=== PATIENT | male | born 1975 | race Caucasian/White ===

== ENCOUNTER 2016-09-17 07:50 | Emergency (ER) | payer OTHER ==
[2016-09-17] MEDS ORDERED: KETOROLAC 30 MG/ML VIAL (J1885) As Ordered ONE (08:28)
[2016-09-17] MEDS ORDERED: ONDANSETRON 4MG/2ML VIAL (J2405) As Ordered ONE (08:28)
[2016-09-17] MEDS ORDERED: OXAZEPAM 15 MG CAP As Ordered ONE (08:29)
[2016-09-17 08:46] LABS: MEAN CORPUSCULAR HEMOGLOBIN 31.4 pg (27.0-33.0); MEAN CORPUSCULAR HGB CONC 35.8 g/dl (32.0-36.5); MEAN CORPUSCULAR VOLUME 87.5 fl (80.0-96.0); PLATELET COUNT, AUTOMATED 181 k/mm3 (150-450); WHITE BLOOD COUNT 11.4 K/mm3 (4.0-10.0)
[2016-09-17 08:54] LABS: ALBUMIN 3.7 GM/DL (3.2-5.2); ALBUMIN/GLOBULIN RATIO 1.12 (1.00-1.93); ALKALINE PHOSPHATASE 86 U/L (45-117); ALT/SGPT 100 U/L (12-78); ANION GAP 11 MEQ/L (8-16); AST/SGOT 78 U/L (15-37); BILIRUBIN,DIRECT 0.2 MG/DL (0.0-0.2); BILIRUBIN,TOTAL 0.7 MG/DL (0.2-1.0); BLOOD UREA NITROGEN 11 MG/DL (7-18); CALCIUM LEVEL 8.6 MG/DL (8.5-10.1); CARBON DIOXIDE LEVEL 27 MEQ/L (21-32); CHLORIDE LEVEL 99 MEQ/L (98-107); CREATININE FOR GFR 1.18 MG/DL (0.70-1.30); GLOMERULAR FILTRATION RATE > 60.0 (>60); GLUCOSE, FASTING 111 MG/DL (70-105); POTASSIUM SERUM 3.7 MEQ/L (3.5-5.1); SODIUM LEVEL 137 MEQ/L (136-145)
[2016-09-17 09:23] LABS: BASOPHILS 1 % (0-4)
--- NOTE | 2016-09-17 10:15 | REP ---
PA and lateral chest: There are no comparisons. There are focal densities in the right upper lobe and just above the right costophrenic angle. These could represent infiltrates or masses. Left lung is clear. Cardiac size is normal. The keith, mediastinum, and bony thorax are unremarkable. Impression: Focal densities in the right upper lobe and just above the left costophrenic angle, nonspecific in the absence of prior studies, masses versus infiltrates. Signed by Yao Song MD 09/17/2016 10:07 A
--- NOTE | 2016-09-17 10:37 | REP ---
CT of the chest without IV contrast: There is performed with the plain film PA and lateral chest performed earlier today. There are no other comparisons. There are multiple patchy subsegmental ground-glass densities in the right upper lobe, right middle lobe and right lower lobe similar to those noted on the comparison plain film study. Additionally, similar densities to a lesser degree are identified in the left upper lobe and left lower lobe. There are no pleural effusions. There is no mediastinal lymph node enlargement. There is no axillary lymph node enlargement. In the absence of IV contrast the study is insensitive for hilar lymph node enlargement. The unenhanced thoracic aorta is unremarkable. Cardiac size normal. There is no pericardial effusion. Upper abdomen: The visualized upper abdominal contents are unremarkable. There is no adrenal mass. Impression: Multifocal ground-glass densities in all lobes of both lungs, compatible with multifocal infiltrates. However, neoplasm is not entirely excluded at this time. I would recommend follow-up chest CT in approximately 1-2 months to determine if the findings are persistent or transient. Scanning could be performed earlier, depending on symptomatology. Signed by Yao Song MD 09/17/2016 10:28 A
[2016-09-17] MEDS ORDERED: cefTRIAXone SOD 1 GM VIAL (J0696) As Ordered ONE (11:42)
--- NOTE | 2016-09-17 13:01 | EDDOCDS ---
Physician Documentation [facility] Name: Steven Kelly Age: 41 yrs Sex: Male : 1975 Arrival Date: 09/17/2016 Time: 07:50 Bed 8 Private MD: Waylon Guerrero P. Disposition: 09/17/16 12:36 Discharged to Home/Self Care. Impression: Pneumonia due to other specified bacteria. - Condition is Stable. - Discharge Instructions: Pneumonia, Adult, Pneumonia, Adult, [id number]. - Prescriptions for oxazepam 30 mg Oral capsule - take 1 capsule by ORAL route as directed one tablet four times per day for 3 days then one tablet three times per day for 3 days then one tablet two times per day for 3 days then once daily for 3 days; 30 capsule. Levaquin 750 mg Oral Tablet - take 1 tablet by ORAL route once daily for 10 days; 10 tablet. - Medication Reconciliation, Local Pharmacy Hours form. - Follow up: Waylon Guerrero; When: 1 - 2 days; Reason: Recheck today's complaints. - Problem is new. - Symptoms have improved. - Notes: need recheck chest xray 1-2 weeks Historical: - Allergies: Amoxicillin (Hives); - Home Meds: 1. Tylenol Cold and Flu Severe 2-67-868-200 mg/15 mL oral liqd 15 mL (Last dose: 09/17/2016 07:00) 2. ibuprofen 200 mg Oral tab 1 tab (Last dose: 09/16/2016 23:00) - PMHx: none; - PSHx: Vasectomy; - Social history: Smoking status: Patient states was never smoker of tobacco. No barriers to communication noted, The patient speaks fluent Belgian, Speaks appropriately for age. - Family history: Not pertinent. - : The pt / caregiver states he / she is not on anticoagulants. Home medication list is obtained from the patient. - Exposure Risk Screening:: None identified. Vital Signs: 09/17 07:57 BP 108 / 57; Pulse 111; Resp 18; Pulse Ox 96% ; Weight 70.31 kg / 155.01 lbs; Height 5 hs1 ft. 7 in. (170.18 cm); Pain 0/10; 07:59 Temp 102(O); hs1 09:14 Temp 100.3(O); mlb1 12:30 BP 115 / 67; Pulse 91; Resp 18; Temp 98.3; Pulse Ox 99% on R/A; Pain 0/10; ttb 07:57 Body Mass Index 24.28 (70.31 kg, 170.18 cm) hs1 MDM: 08:13 NS 0.9% 1000 ml IV at bolus once ordered. sd1 08:13 NS 0.9% 1000 ml IV at bolus once ordered. sd1 08:13 ketorolac 30 mg IVP once ordered. sd1 08:13 Ondansetron 4 mg IVP once ordered. sd1 08:13 Oxazepam 30 mg PO once ordered. sd1 08:14 Basic Metabolic Profile Ordered. EDMS 08:14 CBC with Diff Ordered. EDMS 08:14 Lipase Ordered. EDMS 08:14 Liver Profile Ordered. EDMS 08:15 -Influenza A&B Rapid Antigen - Nose Ordered. EDMS 08:15 Chest, 2 View (pa\E\lat) Ordered. EDMS 08:48 DIFFERENTIAL NO CHARGE Ordered. EDMS 08:48 PLATELET ESTIMATE Ordered. EDMS 09:26 Basic Metabolic Profile Reviewed. sd1 09:26 CBC with Diff Reviewed. sd1 09:26 Liver Profile Reviewed. sd1 09:26 Lipase Reviewed. sd1 09:26 -Influenza A&B Rapid Antigen - Nose Reviewed. sd1 10:08 CBC with Diff Reviewed. sd1 10:08 PLATELET ESTIMATE Reviewed. sd1 10:09 CT Chest Without Contrast Ordered. EDMS 10:46 NS 0.9% 1000 ml IV at bolus once ordered. sd1 10:46 cefTRIAXone 1 grams IVPB once over 30 mins; dilute in 50mL of NS or D5W ordered. sd1 11:42 NS 0.9% 1000 ml IV at bolus once ordered. sd1 11:44 Financial registration complete. mm15 11:45 [facility] Payment Agreement was scanned into [employer] and attached to record. mm15 Administered Medications: 08:35 Drug: NS 0.9% 1000 ml [sodium chloride 0.9 % injection solution] Route: IV; Rate: mlb1 bolus; Site: left antecubital; 09:54 Follow up: IV Status: Completed infusion; IV Intake: 1000ml jc4 11:53 Follow up: IV Status: Completed infusion ttb 08:35 Drug: ketorolac 30 mg [ketorolac 30 mg/mL (1 mL) injection solution (1 mL)] Route: IVP; mlb1 Site: left antecubital; 08:35 Drug: Ondansetron 4 mg [ondansetron HCl 2 mg/mL intravenous solution (2 mL)] Route: mlb1 IVP; Site: left antecubital; 08:35 Drug: Oxazepam 30 mg [oxazepam 15 mg capsule (2 caps)] Route: PO; mlb1 11:57 Follow up: Response: Confirmed pt not driving. ttb 09:55 Drug: NS 0.9% 1000 ml [sodium chloride 0.9 % intravenous solution] Route: IV; Rate: jc4 bolus; Site: left antecubital; 11:53 Follow up: IV Status: Completed infusion ttb 11:52 Drug: NS 0.9% 1000 ml [sodium chloride 0.9 % intravenous solution] Route: IV; Rate: ttb bolus; Site: left antecubital; 12:58 Follow up: Response: No Adverse Reaction; IV Status: Completed infusion; IV Intake: ttb 1000ml 11:52 Drug: NS 0.9% 50 ml, cefTRIAXone 1 grams Route: IVPB; Infused Over: 30 mins; Site: left ttb antecubital; Delivery: Pump; 12:15 Follow up: Response: No Adverse Reaction; IV Status: Completed infusion; IV Intake: 50mlttb 12:58 Not Given (Physician Discretion; MDcanceled.): NS 0.9% 1000 ml IV at bolus once ttb Signatures: Dispatcher [employer] Beverly Rodriguez MD MD sd1 Gaby Cabello RN RN hs1 Haley Rey RN RN ttb Mariana Medel mm15 Steven Snyder RN mlb1 Cassidy Laguna RN jc4 The chart was reviewed and I authenticate all verbal orders and agree with the evaluation and treatment provided.Attachments: 11:45 [facility] Payment Agreement mm15 MTDD
--- NOTE | 2016-09-17 13:01 | EDDOCDS ---
Nurse's Notes [facility] Name: Steven Kelly Age: 41 yrs Sex: Male : 1975 Arrival Date: 09/17/2016 Time: 07:50 Bed 8 Private MD: Waylon Guerrero P. Diagnosis: Pneumonia due to other specified bacteria Presentation: 09/17 07:54 Presenting complaint: Patient states: temperature this morning 103 and was vomiting. hs1 Flu like symptoms since Friday. Adult Sepsis Screening: The patient does not have new or worsening altered mentation. Patient's respiratory rate is less than 22. Systolic blood pressure is greater than 100. Patient has a qSOFA score of 0- Negative Sepsis Screen. Suicide/Homicide risk assessment- the patient denies having any suicidal and/or homicidal ideations and does not present with any other emotional, behavioral or mental health complaints. Status: Patient is not a biomedical field service engineer or dependent. Transition of care: patient was not received from another setting of care. 07:54 Method Of Arrival: Walkin/Carried/Asstd hs1 07:57 Acuity: FEDERICO Level 4 hs1 08:18 Acuity level changed due to complexity of care. mlb1 08:18 Acuity: FEDERICO Level 3 mlb1 Triage Assessment: 07:57 General: Appears in no apparent distress, Behavior is cooperative. Pain: Denies pain. hs1 HIV screening NA for this visit Offered previously. GI: Reports nausea. Derm: Skin is pink, warm & dry. normal. Historical: - Allergies: Amoxicillin (Hives); - Home Meds: 1. Tylenol Cold and Flu Severe [id number] mg/15 mL oral liqd 15 mL (Last dose: 09/17/2016 07:00) 2. ibuprofen 200 mg Oral tab 1 tab (Last dose: 09/16/2016 23:00) - PMHx: none; - PSHx: Vasectomy; - Social history: Smoking status: Patient states was never smoker of tobacco. No barriers to communication noted, The patient speaks fluent Micronesian, Speaks appropriately for age. - Family history: Not pertinent. - : The pt / caregiver states he / she is not on anticoagulants. Home medication list is obtained from the patient. - Exposure Risk Screening:: None identified. Screenin:10 Screening information is obtained from the patient. Fall risk: No risks identified. mlb1 Assistance ADL's: requires no assistance with activities of daily living. Abuse/DV Screen: The patient / caregiver reports he/she is: not in a situation that causes fear, pain or injury. Nutritional screening: No deficits noted. Advance Directives: Currently, there is no health care proxy. home support is adequate. Assessment: 08:08 General: Appears in no apparent distress, comfortable, Behavior is cooperative. Pain: mlb1 Denies pain. Neurological: No deficits noted. Respiratory: Reports cough that is. GI: Reports nausea. Derm: Skin is healthy with good turgor, Skin is dry, Skin is flushed, Skin temperature is hot. 09:14 General: Appears in no apparent distress, comfortable, Behavior is appropriate for age, mlb1 cooperative. Pain: Denies pain. Neurological: No deficits noted. Respiratory: Airway is patent Respiratory effort is even, unlabored. 10:11 General: Appears in no apparent distress, comfortable, Behavior is appropriate for age, mlb1 cooperative. Pain: Denies pain. Neurological: No deficits noted. Respiratory: No deficits noted. 11:01 General: Appears in no apparent distress, comfortable, Behavior is appropriate for age, mlb1 cooperative. Pain: Denies pain. 11:56 General: Appears in no apparent distress, comfortable, well nourished, well groomed, ttb Behavior is appropriate for age, cooperative, pleasant, quiet. Pain: Denies pain. Neurological: Level of Consciousness is awake, alert. Cardiovascular: Heart tones S1 S2 present Chest pain is denied. Respiratory: Airway is patent Respiratory effort is even, unlabored, Respiratory pattern is regular, symmetrical, Breath sounds are clear bilaterally. Reports cough that is Denies labored breathing. GI: Denies nausea. Derm: Skin is normal. 12:30 Adult Sepsis Screening: The patient does not have new or worsening altered mentation. ttb Patient's respiratory rate is less than 22. Systolic blood pressure is greater than 100. Patient has a qSOFA score of 0- Negative Sepsis Screen. General: Appears in no apparent distress, comfortable, Behavior is appropriate for age, cooperative. 12:30 Pain: Denies pain. Respiratory: No deficits noted. Airway is patent Respiratory effort ttb is even, unlabored. Vital Signs: 07:57 BP 108 / 57; Pulse 111; Resp 18; Pulse Ox 96% ; Weight 70.31 kg; Height 5 ft. 7 in. hs1 (170.18 cm); Pain 0/10; 07:59 Temp 102(O); hs1 09:14 Temp 100.3(O); mlb1 12:30 BP 115 / 67; Pulse 91; Resp 18; Temp 98.3; Pulse Ox 99% on R/A; Pain 0/10; ttb 07:57 Body Mass Index 24.28 (70.31 kg, 170.18 cm) hs1 Vitals: 07:57 Log In Time: September 17, 2016 at 07:50. hs1 ED Course: 07:52 Patient visited by Mariana Medel. mm15 07:52 Waylon Guerrero is Private Physician. mm15 07:52 Patient moved to Waiting mm15 07:54 Stephie HillRN is Primary Nurse. hs1 07:54 Patient moved to 8 hs1 07:56 Beverly Guzman MD is Attending Physician. sd1 07:57 Triage Initiated hs1 08:02 Patient visited by Beverly Guzman MD. sd1 08:10 Patient visited by Steven Snyder, MONA. mlb1 08:26 -Influenza A&B Rapid Antigen - Nose Sent. mlb1 08:26 Basic Metabolic Profile Sent. mlb1 08:26 CBC with Diff Sent. mlb1 08:26 Lipase Sent. mlb1 08:26 Liver Profile Sent. mlb1 08:26 Inserted saline lock: 20 gauge in left antecubital area and blood collected. The mlb1 patient tolerated the procedure well. Labs drawn. (by ED staff). Sent per order to lab. 08:35 The patient / caregiver is instructed regarding the plan of care and ED course. Patient mlmichelle has correct armband on for positive identification. Bed in low position. Call light in reach. Side rails up X2. 08:48 DIFFERENTIAL NO CHARGE Sent. mlb1 09:14 Patient visited by Steven Snyder, RN. mlb1 10:11 Patient visited by Steven Snyder, RN. mlb1 10:17 Chest, 2 View (pa\E\lat) Returned. EDMS 10:59 CT Chest Without Contrast Returned. EDMS 11:02 Patient visited by Steven Snyder, RN. mlb1 11:19 Primary Nurse role handed off by Stephie Hill RN mcp 11:45 [facility] Payment Agreement was scanned into [employer] and attached to record. mm15 11:56 No procedures done that require assistance. ttb 11:57 Patient visited by Haley Rey RN. ttb 12:36 Waylon Guerrero is Referral Physician. sd1 Administered Medications: 08:35 Drug: NS 0.9% 1000 ml [sodium chloride 0.9 % injection solution] Route: IV; Rate: mlb1 bolus; Site: left antecubital; 09:54 Follow up: IV Status: Completed infusion; IV Intake: 1000ml jc4 11:53 Follow up: IV Status: Completed infusion ttb 08:35 Drug: ketorolac 30 mg [ketorolac 30 mg/mL (1 mL) injection solution (1 mL)] Route: IVP; mlb1 Site: left antecubital; 08:35 Drug: Ondansetron 4 mg [ondansetron HCl 2 mg/mL intravenous solution (2 mL)] Route: mlb1 IVP; Site: left antecubital; 08:35 Drug: Oxazepam 30 mg [oxazepam 15 mg capsule (2 caps)] Route: PO; mlb1 11:57 Follow up: Response: Confirmed pt not driving. ttb 09:55 Drug: NS 0.9% 1000 ml [sodium chloride 0.9 % intravenous solution] Route: IV; Rate: jc4 bolus; Site: left antecubital; 11:53 Follow up: IV Status: Completed infusion ttb 11:52 Drug: NS 0.9% 1000 ml [sodium chloride 0.9 % intravenous solution] Route: IV; Rate: ttb bolus; Site: left antecubital; 12:58 Follow up: Response: No Adverse Reaction; IV Status: Completed infusion; IV Intake: ttb 1000ml 11:52 Drug: NS 0.9% 50 ml, cefTRIAXone 1 grams Route: IVPB; Infused Over: 30 mins; Site: left ttb antecubital; Delivery: Pump; 12:15 Follow up: Response: No Adverse Reaction; IV Status: Completed infusion; IV Intake: 50mlttb 12:58 Not Given (Physician Discretion; MDcanceled.): NS 0.9% 1000 ml IV at bolus once ttb Intake: 09:54 IV: 1000.00ml; Total: 1000.00ml. jc4 12:15 IV: 50.00ml; Total: 1050.00ml. ttb 12:58 IV: 1000.00ml; Total: 2050.00ml. ttb Order Results: Lab Order: Basic Metabolic Profile; SPEC09/17/16 08:24 Test: GLUCOSE, FASTING; Value: 111; Range: 70-105; Abnormal: Above high normal; Units: MG/DL; Status: F Test: BLOOD UREA NITROGEN; Value: 11; Range: 7-18; Units: MG/DL; Status: F Test: CREATININE FOR GFR; Value: 1.18; Range: 0.70-1.30; Units: MG/DL; Status: F Test: GLOMERULAR FILTRATION RATE; Value: > 60.0; Range: >60; Status: F Test: SODIUM LEVEL; Value: 137; Range: 136-145; Units: MEQ/L; Status: F Test: POTASSIUM SERUM; Value: 3.7; Range: 3.5-5.1; Units: MEQ/L; Status: F Test: CHLORIDE LEVEL; Value: 99; Range: 98-107; Units: MEQ/L; Status: F Test: CARBON DIOXIDE LEVEL; Value: 27; Range: 21-32; Units: MEQ/L; Status: F Test: ANION GAP; Value: 11; Range: 8-16; Units: MEQ/L; Status: F Test: CALCIUM LEVEL; Value: 8.6; Range: 8.5-10.1; Units: MG/DL; Status: F Test Note: ; Units are mL/min/1.73 m2 Chronic Kidney Disease Staging per NKF: Stage I & II GFR >=60 Normal to Mildly Decreased Stage III GFR 30-59 Moderately Decreased Stage IV GFR 15-29 Severely Decreased Stage V GFR <15 Very Little GFR Left ESRD GFR <15 on MOTION STUDY ANALYST Lab Order: CBC with Diff; SPEC09/17/16 08:24 Test: WHITE BLOOD COUNT; Value: 11.4; Range: 4.0-10.0; Abnormal: Above high normal; Units: K/mm3; Status: F Test: RED BLOOD COUNT; Value: 5.00; Range: 4.30-6.10; Units: M/mm3; Status: F Test: HEMOGLOBIN; Value: 15.7; Range: 14.0-18.0; Units: g/dl; Status: F Test: HEMATOCRIT; Value: 43.7; Range: 42.0-52.0; Units: %; Status: F Test: MEAN CORPUSCULAR VOLUME; Value: 87.5; Range: 80.0-96.0; Units: fl; Status: F Test: MEAN CORPUSCULAR HEMOGLOBIN; Value: 31.4; Range: 27.0-33.0; Units: pg; Status: F Test: MEAN CORPUSCULAR HGB CONC; Value: 35.8; Range: 32.0-36.5; Units: g/dl; Status: F Test: RED CELL DISTRIBUTION WIDTH; Value: 12.0; Range: 11.5-14.5; Units: %; Status: F Test: PLATELET COUNT, AUTOMATED; Value: 181; Range: 150-450; Units: k/mm3; Status: F Test: NEUTROPHILS; Value: 81; Range: 35-75; Abnormal: Above high normal; Units: %; Status: F Test: LYMPHOCYTES; Value: 1; Range: 16-52; Abnormal: Below low normal; Units: %; Status: F Test: MONOCYTES; Value: 15; Range: 0-8; Abnormal: Above high normal; Units: %; Status: F Test: BASOPHILS; Value: 1; Range: 0-4; Units: %; Status: F Test: ATYPICAL LYMPH; Value: 2; Range: 0-5; Units: %; Status: F Test: RBC MORPHOLOGY; Value: NORMAL; Status: F Lab Order: Lipase; [facility] 09/17/16 08:24 Test: LIPASE; Value: 186; Range: 73-393; Units: U/L; Status: F Lab Order: Liver Profile; [facility] 09/17/16 08:24 Test: AST/SGOT; Value: 78; Range: 15-37; Abnormal: Above high normal; Units: U/L; Status: F Test: ALT/SGPT; Value: 100; Range: 12-78; Abnormal: Above high normal; Units: U/L; Status: F Test: ALKALINE PHOSPHATASE; Value: 86; Range: 45-117; Units: U/L; Status: F Test: BILIRUBIN,TOTAL; Value: 0.7; Range: 0.2-1.0; Units: MG/DL; Status: F Test: BILIRUBIN,DIRECT; Value: 0.2; Range: 0.0-0.2; Units: MG/DL; Status: F Test: TOTAL PROTEIN; Value: 7.0; Range: 6.4-8.2; Units: GM/DL; Status: F Test: ALBUMIN; Value: 3.7; Range: 3.2-5.2; Units: GM/DL; Status: F Test: ALBUMIN/GLOBULIN RATIO; Value: 1.12; Range: 1.00-1.93; Status: F Lab Order: -Influenza A&B Rapid Antigen - Nose; SPEC'M 09/17/16 08:25 Test: INFLUENZA A RAPID SCR by ICA; Value: INFLUENZA A RESULTS NEGATIVE; Status: F Test: INFLUENZA A RAPID SCR by ICA; Value: Comments:; Status: F Test: INFLUENZA B RAPID SCR by ICA; Value: INFLUENZA B RESULTS NEGATIVE; Status: F Test Note: ; The Influenza test is a direct rapid immunoassay for the qualitative detection of Influenza viral antigen. Cell culture (Viral Culture) testing should be considered to confirm NEGATIVE results and to assist in detecting other viruses that can provide similar clinical symptoms. Please contact the lab within 24 hours ([phone] if confirmatory testing is desired. Lab Order: PLATELET ESTIMATE; SPEC'M 09/17/16 08:24 Test: PLATELET ESTIMATE; Value: NORMAL; Range: NORMAL; Status: F Radiology Order: Chest, 2 View (pa\E\lat) Test: Chest, 2 View (pa\E\lat) REASON FOR EXAMINATION: Cough; PA and lateral chest:; ; There are no comparisons.; ; There are focal densities in the right upper lobe and just above the right; costophrenic angle. These could represent infiltrates or masses.; ; Left lung is clear. Cardiac size is normal.; ; The keith, mediastinum, and bony thorax are unremarkable.; ; Impression:; ; Focal densities in the right upper lobe and just above the left costophrenic; angle, nonspecific in the absence of prior studies, masses versus infiltrates.; ; ; Signed by; Yao Song MD 09/17/2016 10:07 A; Radiology Order: CT Chest Without Contrast Test: CT Chest Without Contrast REASON FOR EXAMINATION: masses vs infiltrate; CT of the chest without IV contrast:; ; There is performed with the plain film PA and lateral chest performed earlier; today. There are no other comparisons.; ; There are multiple patchy subsegmental ground-glass densities in the right upper; lobe, right middle lobe and right lower lobe similar to those noted on the; comparison plain film study.; ; Additionally, similar densities to a lesser degree are identified in the left; upper lobe and left lower lobe.; ; There are no pleural effusions.; ; There is no mediastinal lymph node enlargement. There is no axillary lymph node; enlargement. In the absence of IV contrast the study is insensitive for hilar; lymph node enlargement.; ; The unenhanced thoracic aorta is unremarkable. Cardiac size normal. There is no; pericardial effusion.; ; Upper abdomen:; ; The visualized upper abdominal contents are unremarkable. There is no adrenal; mass.; ; Impression:; ; Multifocal ground-glass densities in all lobes of both lungs, compatible with; multifocal infiltrates. However, neoplasm is not entirely excluded at this time.; I would recommend follow-up chest CT in approximately 1-2 months to determine if; the findings are persistent or transient. Scanning could be performed earlier,; depending on symptomatology.; ; ; Signed by; Yao Song MD 09/17/2016 10:28 A; Outcome: 11:56 CT Study completed. ttb 11:57 Discharge Assessment: patient administered narcotics - yes. Pt provided with safe ttb discharge. Property :Personal belongings accompany Pt. 12:36 Discharge ordered by Provider. sd1 12:59 The following High Risk Discharge criteria are identified: None. Discharged to home ttb ambulatory. Condition: good Condition: stable Condition: improved. Discharge instructions given to patient, Instructed on discharge instructions, follow up and referral plans. medication usage, Demonstrated understanding of instructions, medications, Pt was receptive of discharge instructions/ teaching. Prescriptions given X 2. 13:00 Patient left the ED. ttb Signatures: Dispatcher [employer] EDMS Beverly Guzman MD MD sd1 Christel Aguilera RN RN mcp Barney, Michael B, RN RN mlb1 Gaby Cabello RN RN hs1 Cassidy Laguna RN RN jc4 Haley Rey RN RN ttb Mariana Medel mm15 MTDD
--- NOTE | 2016-09-19 14:02 | EDDOCDS ---
Physician Documentation [facility] Name: Steven Kelly Age: 41 yrs Sex: Male : 1975 Arrival Date: 09/17/2016 Time: 07:50 Bed 8 Private MD: Waylon Guerrreo P. Disposition: 09/17/16 12:36 Discharged to Home/Self Care. Impression: Pneumonia due to other specified bacteria. - Condition is Stable. - Discharge Instructions: Pneumonia, Adult, Pneumonia, Adult, [id number]. - Prescriptions for oxazepam 30 mg Oral capsule - take 1 capsule by ORAL route as directed one tablet four times per day for 3 days then one tablet three times per day for 3 days then one tablet two times per day for 3 days then once daily for 3 days; 30 capsule. Levaquin 750 mg Oral Tablet - take 1 tablet by ORAL route once daily for 10 days; 10 tablet. - Medication Reconciliation, Local Pharmacy Hours form. - Follow up: Waylon Guerrero; When: 1 - 2 days; Reason: Recheck today's complaints. - Problem is new. - Symptoms have improved. - Notes: need recheck chest xray 1-2 weeks Historical: - Allergies: Amoxicillin (Hives); - Home Meds: 1. Tylenol Cold and Flu Severe [id number] mg/15 mL oral liqd 15 mL (Last dose: 09/17/2016 07:00) 2. ibuprofen 200 mg Oral tab 1 tab (Last dose: 09/16/2016 23:00) - PMHx: none; - PSHx: Vasectomy; - Social history: Smoking status: Patient states was never smoker of tobacco. No barriers to communication noted, The patient speaks fluent [place], Speaks appropriately for age. - Family history: Not pertinent. - : The pt / caregiver states he / she is not on anticoagulants. Home medication list is obtained from the patient. - Exposure Risk Screening:: None identified. Vital Signs: 09/17 07:57 BP 108 / 57; Pulse 111; Resp 18; Pulse Ox 96% ; Weight 70.31 kg / 155.01 lbs; Height 5 hs1 ft. 7 in. (170.18 cm); Pain 0/10; 07:59 Temp 102(O); hs1 09:14 Temp 100.3(O); mlb1 12:30 BP 115 / 67; Pulse 91; Resp 18; Temp 98.3; Pulse Ox 99% on R/A; Pain 0/10; ttb 07:57 Body Mass Index 24.28 (70.31 kg, 170.18 cm) hs1 MDM: 08:13 NS 0.9% 1000 ml IV at bolus once ordered. sd1 08:13 NS 0.9% 1000 ml IV at bolus once ordered. sd1 08:13 ketorolac 30 mg IVP once ordered. sd1 08:13 Ondansetron 4 mg IVP once ordered. sd1 08:13 Oxazepam 30 mg PO once ordered. sd1 08:14 Basic Metabolic Profile Ordered. EDMS 08:14 CBC with Diff Ordered. EDMS 08:14 Lipase Ordered. EDMS 08:14 Liver Profile Ordered. EDMS 08:15 -Influenza A&B Rapid Antigen - Nose Ordered. EDMS 08:15 Chest, 2 View (pa\E\lat) Ordered. EDMS 08:48 DIFFERENTIAL NO CHARGE Ordered. EDMS 08:48 PLATELET ESTIMATE Ordered. EDMS 09:26 Basic Metabolic Profile Reviewed. sd1 09:26 CBC with Diff Reviewed. sd1 09:26 Liver Profile Reviewed. sd1 09:26 Lipase Reviewed. sd1 09:26 -Influenza A&B Rapid Antigen - Nose Reviewed. sd1 10:08 CBC with Diff Reviewed. sd1 10:08 PLATELET ESTIMATE Reviewed. sd1 10:09 CT Chest Without Contrast Ordered. EDMS 10:46 NS 0.9% 1000 ml IV at bolus once ordered. sd1 10:46 cefTRIAXone 1 grams IVPB once over 30 mins; dilute in 50mL of NS or D5W ordered. sd1 11:42 NS 0.9% 1000 ml IV at bolus once ordered. sd1 11:44 Financial registration complete. mm15 11:45 [facility] Payment Agreement was scanned into [email or web address] and attached to record. mm15 16:35 Chest, 2 View (pa\E\lat) Reviewed. sd1 16:35 CT Chest Without Contrast Reviewed. sd1 09/18 10:11 T-Sheet-- Draft Copy was scanned into [email or web address] and attached to record. gb Administered Medications: 09/17 08:35 Drug: NS 0.9% 1000 ml [sodium chloride 0.9 % injection solution] Route: IV; Rate: mlb1 bolus; Site: left antecubital; 09:54 Follow up: IV Status: Completed infusion; IV Intake: 1000ml jc4 11:53 Follow up: IV Status: Completed infusion ttb 08:35 Drug: ketorolac 30 mg [ketorolac 30 mg/mL (1 mL) injection solution (1 mL)] Route: IVP; mlb1 Site: left antecubital; 08:35 Drug: Ondansetron 4 mg [ondansetron HCl 2 mg/mL intravenous solution (2 mL)] Route: mlb1 IVP; Site: left antecubital; 08:35 Drug: Oxazepam 30 mg [oxazepam 15 mg capsule (2 caps)] Route: PO; mlb1 11:57 Follow up: Response: Confirmed pt not driving. ttb 09:55 Drug: NS 0.9% 1000 ml [sodium chloride 0.9 % intravenous solution] Route: IV; Rate: jc4 bolus; Site: left antecubital; 11:53 Follow up: IV Status: Completed infusion ttb 11:52 Drug: NS 0.9% 1000 ml [sodium chloride 0.9 % intravenous solution] Route: IV; Rate: ttb bolus; Site: left antecubital; 12:58 Follow up: Response: No Adverse Reaction; IV Status: Completed infusion; IV Intake: ttb 1000ml 11:52 Drug: NS 0.9% 50 ml, cefTRIAXone 1 grams Route: IVPB; Infused Over: 30 mins; Site: left ttb antecubital; Delivery: Pump; 12:15 Follow up: Response: No Adverse Reaction; IV Status: Completed infusion; IV Intake: 50mlttb 12:58 Not Given (Physician Discretion; MDcanceled.): NS 0.9% 1000 ml IV at bolus once ttb Signatures: Dispatcher [employer] EDBeverly Degroot MD MD sd1 Karen Be, Guevara Reg Gaby Fuentes RN RN hs1 Haley Rey RN RN ttb Mariana Medel mm15 Steven Snyder RN mlb1 Cassidy Laguna RN jc4 The chart was reviewed and I authenticate all verbal orders and agree with the evaluation and treatment provided.Attachments: 11:45 [facility] Payment Agreement mm15 09/18 10:11 T-Sheet-- Draft Copy gb Chart Complete MTDD
--- NOTE | 2016-09-19 14:02 | EDDOCDS ---
Physician Documentation [facility] Name: Steven Kelly Age: 41 yrs Sex: Male : 1975 Arrival Date: 09/17/2016 Time: 07:50 Bed 8 Private MD: Waylon Guerrero P. Disposition: 09/17/16 12:36 Discharged to Home/Self Care. Impression: Pneumonia due to other specified bacteria. - Condition is Stable. - Discharge Instructions: Pneumonia, Adult, Pneumonia, Adult, [id number]. - Prescriptions for oxazepam 30 mg Oral capsule - take 1 capsule by ORAL route as directed one tablet four times per day for 3 days then one tablet three times per day for 3 days then one tablet two times per day for 3 days then once daily for 3 days; 30 capsule. Levaquin 750 mg Oral Tablet - take 1 tablet by ORAL route once daily for 10 days; 10 tablet. - Medication Reconciliation, Local Pharmacy Hours form. - Follow up: Waylon Guerrero; When: 1 - 2 days; Reason: Recheck today's complaints. - Problem is new. - Symptoms have improved. - Notes: need recheck chest xray 1-2 weeks Historical: - Allergies: Amoxicillin (Hives); - Home Meds: 1. Tylenol Cold and Flu Severe [id number] mg/15 mL oral liqd 15 mL (Last dose: 09/17/2016 07:00) 2. ibuprofen 200 mg Oral tab 1 tab (Last dose: 09/16/2016 23:00) - PMHx: none; - PSHx: Vasectomy; - Social history: Smoking status: Patient states was never smoker of tobacco. No barriers to communication noted, The patient speaks fluent [place], Speaks appropriately for age. - Family history: Not pertinent. - : The pt / caregiver states he / she is not on anticoagulants. Home medication list is obtained from the patient. - Exposure Risk Screening:: None identified. Vital Signs: 09/17 07:57 BP 108 / 57; Pulse 111; Resp 18; Pulse Ox 96% ; Weight 70.31 kg / 155.01 lbs; Height 5 hs1 ft. 7 in. (170.18 cm); Pain 0/10; 07:59 Temp 102(O); hs1 09:14 Temp 100.3(O); mlb1 12:30 BP 115 / 67; Pulse 91; Resp 18; Temp 98.3; Pulse Ox 99% on R/A; Pain 0/10; ttb 07:57 Body Mass Index 24.28 (70.31 kg, 170.18 cm) hs1 MDM: 08:13 NS 0.9% 1000 ml IV at bolus once ordered. sd1 08:13 NS 0.9% 1000 ml IV at bolus once ordered. sd1 08:13 ketorolac 30 mg IVP once ordered. sd1 08:13 Ondansetron 4 mg IVP once ordered. sd1 08:13 Oxazepam 30 mg PO once ordered. sd1 08:14 Basic Metabolic Profile Ordered. EDMS 08:14 CBC with Diff Ordered. EDMS 08:14 Lipase Ordered. EDMS 08:14 Liver Profile Ordered. EDMS 08:15 -Influenza A&B Rapid Antigen - Nose Ordered. EDMS 08:15 Chest, 2 View (pa\E\lat) Ordered. EDMS 08:48 DIFFERENTIAL NO CHARGE Ordered. EDMS 08:48 PLATELET ESTIMATE Ordered. EDMS 09:26 Basic Metabolic Profile Reviewed. sd1 09:26 CBC with Diff Reviewed. sd1 09:26 Liver Profile Reviewed. sd1 09:26 Lipase Reviewed. sd1 09:26 -Influenza A&B Rapid Antigen - Nose Reviewed. sd1 10:08 CBC with Diff Reviewed. sd1 10:08 PLATELET ESTIMATE Reviewed. sd1 10:09 CT Chest Without Contrast Ordered. EDMS 10:46 NS 0.9% 1000 ml IV at bolus once ordered. sd1 10:46 cefTRIAXone 1 grams IVPB once over 30 mins; dilute in 50mL of NS or D5W ordered. sd1 11:42 NS 0.9% 1000 ml IV at bolus once ordered. sd1 11:44 Financial registration complete. mm15 11:45 [facility] Payment Agreement was scanned into [employer] and attached to record. mm15 16:35 Chest, 2 View (pa\E\lat) Reviewed. sd1 16:35 CT Chest Without Contrast Reviewed. sd1 09/18 10:11 T-Sheet-- Draft Copy was scanned into [employer] and attached to record. gb Administered Medications: 09/17 08:35 Drug: NS 0.9% 1000 ml [sodium chloride 0.9 % injection solution] Route: IV; Rate: mlb1 bolus; Site: left antecubital; 09:54 Follow up: IV Status: Completed infusion; IV Intake: 1000ml jc4 11:53 Follow up: IV Status: Completed infusion ttb 08:35 Drug: ketorolac 30 mg [ketorolac 30 mg/mL (1 mL) injection solution (1 mL)] Route: IVP; mlb1 Site: left antecubital; 08:35 Drug: Ondansetron 4 mg [ondansetron HCl 2 mg/mL intravenous solution (2 mL)] Route: mlb1 IVP; Site: left antecubital; 08:35 Drug: Oxazepam 30 mg [oxazepam 15 mg capsule (2 caps)] Route: PO; mlb1 11:57 Follow up: Response: Confirmed pt not driving. ttb 09:55 Drug: NS 0.9% 1000 ml [sodium chloride 0.9 % intravenous solution] Route: IV; Rate: jc4 bolus; Site: left antecubital; 11:53 Follow up: IV Status: Completed infusion ttb 11:52 Drug: NS 0.9% 1000 ml [sodium chloride 0.9 % intravenous solution] Route: IV; Rate: ttb bolus; Site: left antecubital; 12:58 Follow up: Response: No Adverse Reaction; IV Status: Completed infusion; IV Intake: ttb 1000ml 11:52 Drug: NS 0.9% 50 ml, cefTRIAXone 1 grams Route: IVPB; Infused Over: 30 mins; Site: left ttb antecubital; Delivery: Pump; 12:15 Follow up: Response: No Adverse Reaction; IV Status: Completed infusion; IV Intake: 50mlttb 12:58 Not Given (Physician Discretion; MDcanceled.): NS 0.9% 1000 ml IV at bolus once ttb Signatures: Dispatcher [employer] EDBeverly Degroot MD MD sd1 Karen Be, Guevara Reg Gaby Fuentes RN RN hs1 Haley Rey RN RN ttb Mariana Medel mm15 Steven Snyder RN mlb1 Cassidy aLguna RN jc4 The chart was reviewed and I authenticate all verbal orders and agree with the evaluation and treatment provided.Attachments: 11:45 [facility] Payment Agreement mm15 09/18 10:11 T-Sheet-- Draft Copy gb Chart Complete MTDD
--- NOTE | 2016-09-19 14:02 | EDDOCDS ---
Nurse's Notes [facility] Name: Steven Kelly Age: 41 yrs Sex: Male : 1975 Arrival Date: 09/17/2016 Time: 07:50 Bed 8 Private MD: Waylon Guerrero P. Diagnosis: Pneumonia due to other specified bacteria Presentation: 09/17 07:54 Presenting complaint: Patient states: temperature this morning 103 and was vomiting. hs1 Flu like symptoms since Friday. Adult Sepsis Screening: The patient does not have new or worsening altered mentation. Patient's respiratory rate is less than 22. Systolic blood pressure is greater than 100. Patient has a qSOFA score of 0- Negative Sepsis Screen. Suicide/Homicide risk assessment- the patient denies having any suicidal and/or homicidal ideations and does not present with any other emotional, behavioral or mental health complaints. Status: Patient is not a financial services counselor or dependent. Transition of care: patient was not received from another setting of care. 07:54 Method Of Arrival: Walkin/Carried/Asstd hs1 07:57 Acuity: FEDERICO Level 4 hs1 08:18 Acuity level changed due to complexity of care. mlb1 08:18 Acuity: FEDERICO Level 3 mlb1 Triage Assessment: 07:57 General: Appears in no apparent distress, Behavior is cooperative. Pain: Denies pain. hs1 HIV screening NA for this visit Offered previously. GI: Reports nausea. Derm: Skin is pink, warm & dry. normal. Historical: - Allergies: Amoxicillin (Hives); - Home Meds: 1. Tylenol Cold and Flu Severe 9-71-105-200 mg/15 mL oral liqd 15 mL (Last dose: 09/17/2016 07:00) 2. ibuprofen 200 mg Oral tab 1 tab (Last dose: 09/16/2016 23:00) - PMHx: none; - PSHx: Vasectomy; - Social history: Smoking status: Patient states was never smoker of tobacco. No barriers to communication noted, The patient speaks fluent Vincentian, Speaks appropriately for age. - Family history: Not pertinent. - : The pt / caregiver states he / she is not on anticoagulants. Home medication list is obtained from the patient. - Exposure Risk Screening:: None identified. Screenin:10 Screening information is obtained from the patient. Fall risk: No risks identified. mlb1 Assistance ADL's: requires no assistance with activities of daily living. Abuse/DV Screen: The patient / caregiver reports he/she is: not in a situation that causes fear, pain or injury. Nutritional screening: No deficits noted. Advance Directives: Currently, there is no health care proxy. home support is adequate. Assessment: 08:08 General: Appears in no apparent distress, comfortable, Behavior is cooperative. Pain: mlb1 Denies pain. Neurological: No deficits noted. Respiratory: Reports cough that is. GI: Reports nausea. Derm: Skin is healthy with good turgor, Skin is dry, Skin is flushed, Skin temperature is hot. 09:14 General: Appears in no apparent distress, comfortable, Behavior is appropriate for age, mlb1 cooperative. Pain: Denies pain. Neurological: No deficits noted. Respiratory: Airway is patent Respiratory effort is even, unlabored. 10:11 General: Appears in no apparent distress, comfortable, Behavior is appropriate for age, mlb1 cooperative. Pain: Denies pain. Neurological: No deficits noted. Respiratory: No deficits noted. 11:01 General: Appears in no apparent distress, comfortable, Behavior is appropriate for age, mlb1 cooperative. Pain: Denies pain. 11:56 General: Appears in no apparent distress, comfortable, well nourished, well groomed, ttb Behavior is appropriate for age, cooperative, pleasant, quiet. Pain: Denies pain. Neurological: Level of Consciousness is awake, alert. Cardiovascular: Heart tones S1 S2 present Chest pain is denied. Respiratory: Airway is patent Respiratory effort is even, unlabored, Respiratory pattern is regular, symmetrical, Breath sounds are clear bilaterally. Reports cough that is Denies labored breathing. GI: Denies nausea. Derm: Skin is normal. 12:30 Adult Sepsis Screening: The patient does not have new or worsening altered mentation. ttb Patient's respiratory rate is less than 22. Systolic blood pressure is greater than 100. Patient has a qSOFA score of 0- Negative Sepsis Screen. General: Appears in no apparent distress, comfortable, Behavior is appropriate for age, cooperative. 12:30 Pain: Denies pain. Respiratory: No deficits noted. Airway is patent Respiratory effort ttb is even, unlabored. Vital Signs: 07:57 BP 108 / 57; Pulse 111; Resp 18; Pulse Ox 96% ; Weight 70.31 kg; Height 5 ft. 7 in. hs1 (170.18 cm); Pain 0/10; 07:59 Temp 102(O); hs1 09:14 Temp 100.3(O); mlb1 12:30 BP 115 / 67; Pulse 91; Resp 18; Temp 98.3; Pulse Ox 99% on R/A; Pain 0/10; ttb 07:57 Body Mass Index 24.28 (70.31 kg, 170.18 cm) hs1 Vitals: 07:57 Log In Time: September 17, 2016 at 07:50. hs1 ED Course: 07:52 Patient visited by Mariana Medel. mm15 07:52 Waylon Guerrero is Private Physician. mm15 07:52 Patient moved to Waiting mm15 07:54 Stephie HillRN is Primary Nurse. hs1 07:54 Patient moved to 8 hs1 07:56 Beverly Guzman MD is Attending Physician. sd1 07:57 Triage Initiated hs1 08:02 Patient visited by Beverly Guzman MD. sd1 08:10 Patient visited by Steven Snyder, MONA. mlb1 08:26 -Influenza A&B Rapid Antigen - Nose Sent. mlb1 08:26 Basic Metabolic Profile Sent. mlb1 08:26 CBC with Diff Sent. mlb1 08:26 Lipase Sent. mlb1 08:26 Liver Profile Sent. mlb1 08:26 Inserted saline lock: 20 gauge in left antecubital area and blood collected. The mlb1 patient tolerated the procedure well. Labs drawn. (by ED staff). Sent per order to lab. 08:35 The patient / caregiver is instructed regarding the plan of care and ED course. Patient mlmichelle has correct armband on for positive identification. Bed in low position. Call light in reach. Side rails up X2. 08:48 DIFFERENTIAL NO CHARGE Sent. mlb1 09:14 Patient visited by Steven Snyder, RN. mlb1 10:11 Patient visited by Steven Snyder, RN. mlb1 10:17 Chest, 2 View (pa\E\lat) Returned. EDMS 10:59 CT Chest Without Contrast Returned. EDMS 11:02 Patient visited by Steven Snyder, RN. mlb1 11:19 Primary Nurse role handed off by Stephie Hill RN mcp 11:45 [facility] Payment Agreement was scanned into [employer] and attached to record. mm15 11:56 No procedures done that require assistance. ttb 11:57 Patient visited by Haley Rey RN. ttb 12:36 Waylon Guerrero is Referral Physician. sd1 09/18 10:11 T-Sheet-- Draft Copy was scanned into [employer] and attached to record. gb Administered Medications: 09/17 08:35 Drug: NS 0.9% 1000 ml [sodium chloride 0.9 % injection solution] Route: IV; Rate: mlb1 bolus; Site: left antecubital; 09:54 Follow up: IV Status: Completed infusion; IV Intake: 1000ml jc4 11:53 Follow up: IV Status: Completed infusion ttb 08:35 Drug: ketorolac 30 mg [ketorolac 30 mg/mL (1 mL) injection solution (1 mL)] Route: IVP; mlb1 Site: left antecubital; 08:35 Drug: Ondansetron 4 mg [ondansetron HCl 2 mg/mL intravenous solution (2 mL)] Route: mlb1 IVP; Site: left antecubital; 08:35 Drug: Oxazepam 30 mg [oxazepam 15 mg capsule (2 caps)] Route: PO; mlb1 11:57 Follow up: Response: Confirmed pt not driving. ttb 09:55 Drug: NS 0.9% 1000 ml [sodium chloride 0.9 % intravenous solution] Route: IV; Rate: jc4 bolus; Site: left antecubital; 11:53 Follow up: IV Status: Completed infusion ttb 11:52 Drug: NS 0.9% 1000 ml [sodium chloride 0.9 % intravenous solution] Route: IV; Rate: ttb bolus; Site: left antecubital; 12:58 Follow up: Response: No Adverse Reaction; IV Status: Completed infusion; IV Intake: ttb 1000ml 11:52 Drug: NS 0.9% 50 ml, cefTRIAXone 1 grams Route: IVPB; Infused Over: 30 mins; Site: left ttb antecubital; Delivery: Pump; 12:15 Follow up: Response: No Adverse Reaction; IV Status: Completed infusion; IV Intake: 50mlttb 12:58 Not Given (Physician Discretion; MDcanceled.): NS 0.9% 1000 ml IV at bolus once ttb Intake: 09:54 IV: 1000.00ml; Total: 1000.00ml. jc4 12:15 IV: 50.00ml; Total: 1050.00ml. ttb 12:58 IV: 1000.00ml; Total: 2050.00ml. ttb Order Results: Lab Order: Basic Metabolic Profile; SPEC'M 09/17/16 08:24 Test: GLUCOSE, FASTING; Value: 111; Range: 70-105; Abnormal: Above high normal; Units: MG/DL; Status: F Test: BLOOD UREA NITROGEN; Value: 11; Range: 7-18; Units: MG/DL; Status: F Test: CREATININE FOR GFR; Value: 1.18; Range: 0.70-1.30; Units: MG/DL; Status: F Test: GLOMERULAR FILTRATION RATE; Value: > 60.0; Range: >60; Status: F Test: SODIUM LEVEL; Value: 137; Range: 136-145; Units: MEQ/L; Status: F Test: POTASSIUM SERUM; Value: 3.7; Range: 3.5-5.1; Units: MEQ/L; Status: F Test: CHLORIDE LEVEL; Value: 99; Range: 98-107; Units: MEQ/L; Status: F Test: CARBON DIOXIDE LEVEL; Value: 27; Range: 21-32; Units: MEQ/L; Status: F Test: ANION GAP; Value: 11; Range: 8-16; Units: MEQ/L; Status: F Test: CALCIUM LEVEL; Value: 8.6; Range: 8.5-10.1; Units: MG/DL; Status: F Test Note: ; Units are mL/min/1.73 m2 Chronic Kidney Disease Staging per NKF: Stage I & II GFR >=60 Normal to Mildly Decreased Stage III GFR 30-59 Moderately Decreased Stage IV GFR 15-29 Severely Decreased Stage V GFR <15 Very Little GFR Left ESRD GFR <15 on SEC ACCOUNTANT Lab Order: CBC with Diff; SPEC'M 09/17/16 08:24 Test: WHITE BLOOD COUNT; Value: 11.4; Range: 4.0-10.0; Abnormal: Above high normal; Units: K/mm3; Status: F Test: RED BLOOD COUNT; Value: 5.00; Range: 4.30-6.10; Units: M/mm3; Status: F Test: HEMOGLOBIN; Value: 15.7; Range: 14.0-18.0; Units: g/dl; Status: F Test: HEMATOCRIT; Value: 43.7; Range: 42.0-52.0; Units: %; Status: F Test: MEAN CORPUSCULAR VOLUME; Value: 87.5; Range: 80.0-96.0; Units: fl; Status: F Test: MEAN CORPUSCULAR HEMOGLOBIN; Value: 31.4; Range: 27.0-33.0; Units: pg; Status: F Test: MEAN CORPUSCULAR HGB CONC; Value: 35.8; Range: 32.0-36.5; Units: g/dl; Status: F Test: RED CELL DISTRIBUTION WIDTH; Value: 12.0; Range: 11.5-14.5; Units: %; Status: F Test: PLATELET COUNT, AUTOMATED; Value: 181; Range: 150-450; Units: k/mm3; Status: F Test: NEUTROPHILS; Value: 81; Range: 35-75; Abnormal: Above high normal; Units: %; Status: F Test: LYMPHOCYTES; Value: 1; Range: 16-52; Abnormal: Below low normal; Units: %; Status: F Test: MONOCYTES; Value: 15; Range: 0-8; Abnormal: Above high normal; Units: %; Status: F Test: BASOPHILS; Value: 1; Range: 0-4; Units: %; Status: F Test: ATYPICAL LYMPH; Value: 2; Range: 0-5; Units: %; Status: F Test: RBC MORPHOLOGY; Value: NORMAL; Status: F Lab Order: Lipase; SPEC09/17/16 08:24 Test: LIPASE; Value: 186; Range: 73-393; Units: U/L; Status: F Lab Order: Liver Profile; 09/17/16 08:24 Test: AST/SGOT; Value: 78; Range: 15-37; Abnormal: Above high normal; Units: U/L; Status: F Test: ALT/SGPT; Value: 100; Range: 12-78; Abnormal: Above high normal; Units: U/L; Status: F Test: ALKALINE PHOSPHATASE; Value: 86; Range: 45-117; Units: U/L; Status: F Test: BILIRUBIN,TOTAL; Value: 0.7; Range: 0.2-1.0; Units: MG/DL; Status: F Test: BILIRUBIN,DIRECT; Value: 0.2; Range: 0.0-0.2; Units: MG/DL; Status: F Test: TOTAL PROTEIN; Value: 7.0; Range: 6.4-8.2; Units: GM/DL; Status: F Test: ALBUMIN; Value: 3.7; Range: 3.2-5.2; Units: GM/DL; Status: F Test: ALBUMIN/GLOBULIN RATIO; Value: 1.12; Range: 1.00-1.93; Status: F Lab Order: -Influenza A&B Rapid Antigen - Nose; SPEC'M 09/17/16 08:25 Test: INFLUENZA A RAPID SCR by ICA; Value: INFLUENZA A RESULTS NEGATIVE; Status: F Test: INFLUENZA A RAPID SCR by ICA; Value: Comments:; Status: F Test: INFLUENZA B RAPID SCR by ICA; Value: INFLUENZA B RESULTS NEGATIVE; Status: F Test Note: ; The Influenza test is a direct rapid immunoassay for the qualitative detection of Influenza viral antigen. Cell culture (Viral Culture) testing should be considered to confirm NEGATIVE results and to assist in detecting other viruses that can provide similar clinical symptoms. Please contact the lab within 24 hours ([phone]) if confirmatory testing is desired. Lab Order: PLATELET ESTIMATE; SPEC'M 09/17/16 08:24 Test: PLATELET ESTIMATE; Value: NORMAL; Range: NORMAL; Status: F Radiology Order: Chest, 2 View (pa\E\lat) Test: Chest, 2 View (pa\E\lat) REASON FOR EXAMINATION: Cough; PA and lateral chest:; ; There are no comparisons.; ; There are focal densities in the right upper lobe and just above the right; costophrenic angle. These could represent infiltrates or masses.; ; Left lung is clear. Cardiac size is normal.; ; The keith, mediastinum, and bony thorax are unremarkable.; ; Impression:; ; Focal densities in the right upper lobe and just above the left costophrenic; angle, nonspecific in the absence of prior studies, masses versus infiltrates.; ; ; Signed by; Yao Song MD 09/17/2016 10:07 A; Radiology Order: CT Chest Without Contrast Test: CT Chest Without Contrast REASON FOR EXAMINATION: masses vs infiltrate; CT of the chest without IV contrast:; ; There is performed with the plain film PA and lateral chest performed earlier; today. There are no other comparisons.; ; There are multiple patchy subsegmental ground-glass densities in the right upper; lobe, right middle lobe and right lower lobe similar to those noted on the; comparison plain film study.; ; Additionally, similar densities to a lesser degree are identified in the left; upper lobe and left lower lobe.; ; There are no pleural effusions.; ; There is no mediastinal lymph node enlargement. There is no axillary lymph node; enlargement. In the absence of IV contrast the study is insensitive for hilar; lymph node enlargement.; ; The unenhanced thoracic aorta is unremarkable. Cardiac size normal. There is no; pericardial effusion.; ; Upper abdomen:; ; The visualized upper abdominal contents are unremarkable. There is no adrenal; mass.; ; Impression:; ; Multifocal ground-glass densities in all lobes of both lungs, compatible with; multifocal infiltrates. However, neoplasm is not entirely excluded at this time.; I would recommend follow-up chest CT in approximately 1-2 months to determine if; the findings are persistent or transient. Scanning could be performed earlier,; depending on symptomatology.; ; ; Signed by; aYo Song MD 09/17/2016 10:28 A; Outcome: 11:56 CT Study completed. ttb 11:57 Discharge Assessment: patient administered narcotics - yes. Pt provided with safe ttb discharge. Property :Personal belongings accompany Pt. 12:36 Discharge ordered by Provider. sd1 12:59 The following High Risk Discharge criteria are identified: None. Discharged to home ttb ambulatory. Condition: good Condition: stable Condition: improved. Discharge instructions given to patient, Instructed on discharge instructions, follow up and referral plans. medication usage, Demonstrated understanding of instructions, medications, Pt was receptive of discharge instructions/ teaching. Prescriptions given X 2. 13:00 Patient left the ED. ttb Signatures: Dispatcher [employer] EDMS Beverly Guzman MD MD sd1 Christel Aguilera RN RN Karen Soriano, Reg Reg gb Steven Snyder RN RN mlb1 Gaby Cabello RN RN hs1 Cassidy Laguna RN RN jc4 Haley Rey RN RN ttb Mariana Medel mm15 Chart Complete MTDD
== END 2016-09-17 13:00 | disposition home or self-care (01) ==
LOC: M ED 07:50
DX: J18.9 Pneumonia, unspecified organism (principal); E86.0 Dehydration; Z88.0 Allergy status to penicillin
CPT/HCPCS: 36415; 71020; 71250; 80048; 80076; 83690; 85025; 87804; 96361; 96365; 96375; 99284; J0696; J1885; J2405

== ENCOUNTER 2018-11-04 10:08 | Emergency (ER) | payer OTHER ==
[~2018-11-04] VITALS: Ht 170.2 cm; Wt 70.5 kg
[2018-11-04] MEDS ORDERED: OXAZEPAM 15 MG CAP PO ONE (10:30)
[2018-11-04] MEDS ORDERED: NS 1,000 ML IV ONE (10:30)
[2018-11-04 11:00] LABS: BASO # 0.1 10^3/uL (0.0-0.2); BASO % 0.8 % (0.0-1.0); EOS # 0.1 10^3/uL (0.0-0.50); EOS % 0.6 % (0.0-3.0); HEMATOCRIT 45.7 % (42.0-52.0); HEMOGLOBIN 16.1 g/dl (13.5-17.5); LYMPH # 1.5 10^3/uL (1.5-4.5); LYMPH % 18.6 % (24.0-44.0); MEAN CORPUSCULAR HEMOGLOBIN 31.8 pg (27.0-33.0); MEAN CORPUSCULAR HGB CONC 35.2 g/dl (32.0-36.5); MEAN CORPUSCULAR VOLUME 90.1 fl (80.0-96.0); MONO # 0.8 10^3/uL (0.0-0.8); MONO % 9.5 % (0.0-5.0); NEUTROPHILS # 5.6 10^3/uL (1.8-7.7); PLATELET COUNT, AUTOMATED 268 10^3/uL (150-450); RED BLOOD COUNT 5.07 10^6/uL (4.30-6.10)
[2018-11-04 11:13] LABS: INR 0.94; PROTHROMBIN TIME 12.6 SECONDS (12.1-14.4)
[2018-11-04 11:20] LABS: ALBUMIN 4.2 GM/DL (3.2-5.2); ALT/SGPT 179 U/L (12-78); BILIRUBIN,DIRECT 0.2 MG/DL (0.0-0.2); BILIRUBIN,TOTAL 0.6 MG/DL (0.2-1.0); BLOOD UREA NITROGEN 6 MG/DL (7-18); CALCIUM LEVEL 9.1 MG/DL (8.5-10.1); CARBON DIOXIDE LEVEL 26 MEQ/L (21-32); CHLORIDE LEVEL 103 MEQ/L (98-107); CREATININE FOR GFR 0.62 MG/DL (0.70-1.30); GLOMERULAR FILTRATION RATE > 60.0 (>60); GLUCOSE, FASTING 94 MG/DL (70-100); LIPASE 349 U/L (73-393); POTASSIUM SERUM 3.9 MEQ/L (3.5-5.1); SODIUM LEVEL 137 MEQ/L (136-145); TOTAL PROTEIN 7.6 GM/DL (6.4-8.2)
[2018-11-04] MEDS ORDERED: OXAZ30CA2 PO (13:17)
[2018-11-04] MEDS ORDERED: ZOFR4TAB16 PO (13:19)
[2018-11-04 13:32] VITALS: BP 141/91
[2018-11-05] MEDS ORDERED: PAXI10TA12 PO (11:22)
== END 2018-11-04 13:38 | disposition home or self-care (01) ==
LOC: M ED 10:08
DX: F10.239 Alcohol dependence with withdrawal, unspecified (principal); Z79.899 Other long term (current) drug therapy; Z88.0 Allergy status to penicillin; Z88.8 Allergy status to other drugs, medicaments and biological substances

== ENCOUNTER 2018-12-24 08:31 | Emergency (ER) | payer OTHER ==
[~2018-12-24] VITALS: Ht 170.2 cm; Wt 75.0 kg
[~2018-12-24 08:31] MED LIST: OXAZ30CA2 PO; PAXI10TA12 PO; ZOFR4TAB16 PO
[2018-12-24] MEDS ORDERED: OXAZ15CA4 PO (08:47)
[2018-12-24] MEDS ORDERED: NALT50TA4 PO (08:50)
[2018-12-24 08:51] VITALS: BP 136/90
[2018-12-24] MEDS ORDERED: ZOFR4TAB16 PO (09:08)
[2018-12-24] MEDS ORDERED: ONDANSETRON 4 MG ORAL DISINTEGRATING TAB (Q0162 PER 1MG) PO ONE (09:15)
[2018-12-24 09:34] LABS: ALBUMIN 3.7 GM/DL (3.2-5.2); BILIRUBIN,DIRECT 0.2 MG/DL (0.0-0.2); BILIRUBIN,TOTAL 0.6 MG/DL (0.2-1.0); TOTAL PROTEIN 7.2 GM/DL (6.4-8.2)
== END 2018-12-24 09:18 | disposition home or self-care (01) ==
LOC: M ED 08:31
DX: F10.239 Alcohol dependence with withdrawal, unspecified (principal); Z79.899 Other long term (current) drug therapy; Z88.0 Allergy status to penicillin; Z88.8 Allergy status to other drugs, medicaments and biological substances
CPT/HCPCS: 36415; 80076; 99283; Q0162

== ENCOUNTER 2019-03-16 07:13 | Inpatient (IN) | payer OTHER ==
[~2019-03-16] VITALS: Ht 170.2 cm; Wt 75.0 kg
[~2019-03-16 07:13] MED LIST changes: +NALT50TA4 PO; +OXAZ15CA4 PO
[2019-03-16] MEDS ORDERED: LORazepam 2 MG/ML VIAL (J2060) IV STA (07:21)
[2019-03-16] MEDS ORDERED: ONDANSETRON 4MG/2ML VIAL (J2405) IV ONE (07:30)
[2019-03-16] MEDS ORDERED: NS 1,000 ML IV ONE ×2 (07:30→09:30)
[2019-03-16] MEDS ORDERED: PROZ10CA7 PO (07:49)
[2019-03-16] MEDS ORDERED: PROZ20CA11 PO (07:49)
[2019-03-16 08:09] LABS: BASO % 0.7 % (0.0-1.0); EOS % 0.5 % (0.0-3.0); HEMATOCRIT 48.9 % (42.0-52.0); HEMOGLOBIN 17.5 g/dl (13.5-17.5); LYMPH # 1.7 10^3/uL (1.5-4.5); LYMPH % 29.6 % (24.0-44.0); MEAN CORPUSCULAR HEMOGLOBIN 32.2 pg (27.0-33.0); MEAN CORPUSCULAR HGB CONC 35.8 g/dl (32.0-36.5); MEAN CORPUSCULAR VOLUME 89.9 fl (80.0-96.0); MONO # 0.6 10^3/uL (0.0-0.8); MONO % 9.9 % (0.0-5.0); NEUTROPHILS # 3.4 10^3/uL (1.8-7.7); NEUTROPHILS % 59.1 % (36.0-66.0); PLATELET COUNT, AUTOMATED 321 10^3/uL (150-450); RED BLOOD COUNT 5.44 10^6/uL (4.30-6.10); WHITE BLOOD COUNT 5.8 10^3/uL (4.0-10.0)
[2019-03-16 08:30] LABS: ALT/SGPT 74 U/L (12-78); BILIRUBIN,DIRECT 0.2 MG/DL (0.0-0.2); BILIRUBIN,TOTAL 0.9 MG/DL (0.2-1.0); BLOOD UREA NITROGEN 5 MG/DL (7-18); CALCIUM LEVEL 8.9 MG/DL (8.5-10.1); CARBON DIOXIDE LEVEL 26 MEQ/L (21-32); CHLORIDE LEVEL 103 MEQ/L (98-107); CREATININE FOR GFR 0.76 MG/DL (0.70-1.30); GLOMERULAR FILTRATION RATE > 60.0 (>60); GLUCOSE, FASTING 105 MG/DL (70-100); LIPASE 503 U/L (73-393); POTASSIUM SERUM 3.4 MEQ/L (3.5-5.1); SODIUM LEVEL 141 MEQ/L (136-145); TOTAL PROTEIN 8.1 GM/DL (6.4-8.2)
[2019-03-16] MEDS ORDERED: THIAMINE HCL 200 MG/2 ML VIAL (J3411) IM ONE (08:45)
[2019-03-16] MEDS: THIAMINE 100 MG TAB PO SCH (09:00)
--- NOTE | 2019-03-16 09:11 | REP ---
CHEST, ONE VIEW: HISTORY: Hypoxia. COMPARISON: 09/17/2016. The lungs are clear. The heart is normal in size. The pulmonary vasculature is normal in appearance. IMPRESSION: No acute disease. Electronically Signed by Orlando Shankar MD 03/16/2019 09:30 A
[2019-03-16] MEDS ORDERED: KCL 10MEQ/100ML SWI (KRUN) 10 MEQ in APPROPRIATE DILUENT 1 EA IV ONE (10:00)
[2019-03-16] MEDS: OXAZEPAM 15 MG CAP PO SCH ×3 (11:02→22:14)
[2019-03-16] MEDS: NS 1,000 ML IV SCH ×2 (11:14→21:11)
[2019-03-16] MEDS ORDERED: LORazepam 2 MG/ML VIAL (J2060) IV PRN (11:15)
[2019-03-16] MEDS ORDERED: ONDANSETRON 4 MG TAB (S0181) PO PRN (11:15)
[2019-03-16] MEDS: FOLIC ACID 1 MG TAB PO SCH (11:15)
[2019-03-16] MEDS: FLUoxetine 20 MG CAP PO SCH (11:15)
[2019-03-16] MEDS: FLUoxetine 10 MG CAP PO SCH (11:15)
[2019-03-16] MEDS: MULTIVITAMINS/MINERALS THERAP 1 TAB PO SCH (11:15)
--- NOTE | 2019-03-16 12:59 | HPEPDOC ---
[facility] Medical History & Physical Date of Admission Mar 16, 2019 Date of Service: Mar 16, 2019 Primary Care Physician: VICTOR MANUEL RODRÍGUEZ MD History and Physical CHIEF COMPLAINT: nausea/vomiting x 1 day HISTORY OF PRESENT ILLNESS: 43 yo male with PMHx of ethanol abuse presents for one day history of nausea/vomiting. States he has had multiple attempts for alcohol cessation. Last drink was yesterday at 8pm. Typically drinks 8-12 bottles of beer a day. Denies withdrawal seizures, however does note he has had unwitnessed falls with blackouts, found on the floor by his . Denies any knowledge of bladder or bowel incontinence associated with these episodes. PAST MEDICAL HISTORY: 1. Depression 2. EtOH abuse ALLERGIES: Please see below. REVIEW OF SYSTEMS: Negative except as per HPI. HOME MEDICATIONS: Please see below. PHYSICAL EXAMINATION: VITAL SIGNS: See below GENERAL APPEARANCE: NAD, lying comfortably in bed, somewhat anxious HEENT: NC/AT, EOMI, PERRL CARDIOVASCULAR: +S1S2, RRR LUNGS: CTA B/L ABDOMEN: soft, NT, +BS EXTREMITIES: no edema NEUROLOGICAL: no gross focal deficits PSYCHIATRIC: AAOx3 LABORATORY DATA: See below. MICROBIOLOGY: Please see below. ASSESSMENT: 43 yo male for EtOH withdrawal, pancreatitis, nausea, vomiting. PLAN: #pancreatitis - clear liquid, IV fluids #EtOH abuse - CIWA - MVI/thiamine/folate - serax scheduled/IV ativan PRN #N/V - zofran as needed Dispo: anticipate discharge in 24 hours, pending improvement of symptoms Vital Signs Vital Signs Date Time Temp Pulse Resp B/P (MAP) Pulse Ox O2 Delivery O2 Flow Rate FiO2 03/16/19 11:17 96 152/90 03/16/19 10:28 98 03/16/19 09:06 97.9 03/16/19 09:00 20 Room Air Laboratory Data Labs 24H Laboratory Tests 2 03/16/19 07:20: Immature Granulocyte % (Auto) 0.2, White Blood Count 5.8, Red Blood Count 5.44, Hemoglobin 17.5, Hematocrit 48.9, Mean Corpuscular Volume 89.9, Mean Corpuscular Hemoglobin 32.2, Mean Corpuscular Hemoglobin Concent 35.8, Red Cell Distribution Width 13.0, Platelet Count 321, Neutrophils (%) (Auto) 59.1, Lymphocytes (%) (Auto) 29.6, Monocytes (%) (Auto) 9.9H, Eosinophils (%) (Auto) 0.5, Basophils (%) (Auto) 0.7, Neutrophils # (Auto) 3.4, Lymphocytes # (Auto) 1.7, Monocytes # (Auto) 0.6, Eosinophils # (Auto) 0.0, Basophils # (Auto) 0.0, Nucleated Red Blood Cells % (auto) 0.0, Anion Gap 12, Glomerular Filtration Rate > 60.0, Calcium Level 8.9, Aspartate Amino Transf (AST/SGOT) 64H, Alanine Aminotransferase (ALT/SGPT) 74, Alkaline Phosphatase 98, Total Bilirubin 0.9, Direct Bilirubin 0.2, Total Protein 8.1, Albumin 4.0, Albumin/Globulin Ratio 0.98L, Lipase 503H CBC/BMP Laboratory Tests 03/16/19 07:20 Red Blood Count 5.44, Mean Corpuscular Volume 89.9, Mean Corpuscular Hemoglobin 32.2, Mean Corpuscular Hemoglobin Concent 35.8, Red Cell Distribution Width 13.0, Neutrophils (%) (Auto) 59.1, Lymphocytes (%) (Auto) 29.6, Monocytes (%) (Auto) 9.9 H, Eosinophils (%) (Auto) 0.5, Basophils (%) (Auto) 0.7, Neutrophils # (Auto) 3.4, Lymphocytes # (Auto) 1.7, Monocytes # (Auto) 0.6, Eosinophils # (Auto) 0.0, Basophils # (Auto) 0.0 Home Medications Scheduled Fluoxetine HCl (Prozac) 10 Mg Capsule, 10 MG PO DAILY 30MG TOTAL Fluoxetine HCl (Prozac) 20 Mg Capsule, 20 MG PO DAILY 30MG TOTAL Folic Acid (Folic Acid) 1 Mg Tablet, 1 MG PO DAILY Oxazepam (Oxazepam) 30 Mg Capsule, 30 MG PO ASDIRECTED 1 tab every 6 hours, then 1 tab every 8 hours, then 1 tab every 12 hours, t hen stop Thiamine Hcl (Vitamin B-1) 100 Mg Tablet, 100 MG PO DAILY Allergies Coded Allergies: amoxicillin (Verified Allergy, Intermediate, hives, 11/04/18) aspirin (Verified Allergy, Unknown, 11/04/18) A-FIB/CHADSVASC A-FIB History Current/History of A-Fib/PAF?: No Current PO Anticoag Therapy: No ANSON JARAMILLO MD Mar 16, 2019 12:59
[2019-03-16 15:20] LABS: MAGNESIUM LEVEL 2.3 MG/DL (1.8-2.4)
[2019-03-16 16:00] VITALS: BP 135/95
[2019-03-16 20:00] VITALS: BP 130/88
[2019-03-16 22:00] VITALS: BP 136/77
[2019-03-17 00:01] VITALS: BP 133/78
[2019-03-17] MEDS: OXAZEPAM 15 MG CAP PO SCH ×3 (04:49→16:40)
[2019-03-17 06:00] VITALS: BP 122/76
[2019-03-17 06:17] LABS: HEMATOCRIT 44.7 % (42.0-52.0); HEMOGLOBIN 15.4 g/dl (13.5-17.5); MEAN CORPUSCULAR HEMOGLOBIN 32.2 pg (27.0-33.0); MEAN CORPUSCULAR HGB CONC 34.5 g/dl (32.0-36.5); MEAN CORPUSCULAR VOLUME 93.5 fl (80.0-96.0); PLATELET COUNT, AUTOMATED 222 10^3/uL (150-450); RED BLOOD COUNT 4.78 10^6/uL (4.30-6.10); WHITE BLOOD COUNT 8.1 10^3/uL (4.0-10.0)
[2019-03-17] MEDS: NS 1,000 ML IV SCH ×2 (06:23→16:23)
[2019-03-17 06:44] LABS: ALBUMIN 3.2 GM/DL (3.2-5.2); ALT/SGPT 56 U/L (12-78); BILIRUBIN,TOTAL 1.2 MG/DL (0.2-1.0); BLOOD UREA NITROGEN 3 MG/DL (7-18); CALCIUM LEVEL 8.3 MG/DL (8.5-10.1); CARBON DIOXIDE LEVEL 33 MEQ/L (21-32); CHLORIDE LEVEL 102 MEQ/L (98-107); GLOMERULAR FILTRATION RATE > 60.0 (>60); GLUCOSE, FASTING 94 MG/DL (70-100); LIPASE 325 U/L (73-393); POTASSIUM SERUM 3.2 MEQ/L (3.5-5.1); SODIUM LEVEL 139 MEQ/L (136-145); TOTAL PROTEIN 6.7 GM/DL (6.4-8.2)
[2019-03-17] MEDS ORDERED: POTASSIUM CHLORIDE 10 MEQ SR TABLET PO ONE (08:00)
[2019-03-17] MEDS: THIAMINE 100 MG TAB PO SCH (09:05)
[2019-03-17] MEDS: MULTIVITAMINS/MINERALS THERAP 1 TAB PO SCH (09:05)
[2019-03-17] MEDS: FOLIC ACID 1 MG TAB PO SCH (09:05)
[2019-03-17] MEDS: FLUoxetine 10 MG CAP PO SCH (09:05)
[2019-03-17] MEDS: FLUoxetine 20 MG CAP PO SCH (09:05)
[2019-03-17 09:12] VITALS: BP 132/76
[2019-03-17 13:03] VITALS: BP 120/60
[2019-03-17 14:00] VITALS: BP 139/58
[2019-03-17] MEDS ORDERED: THIA100TA PO (14:41)
[2019-03-17] MEDS ORDERED: FOLI1TAB11 PO (14:41)
[2019-03-17] MEDS ORDERED: OXAZ30CA2 PO (15:01)
--- NOTE | 2019-03-17 16:18 | DS.PDOC ---
Discharge Summary General Date of Admission Mar 16, 2019 at 10:23 Date of Discharge 03/17/19 Discharge Summary PROCEDURES PERFORMED DURING STAY: [None]. DISCHARGE DIAGNOSES: 1. pancreatitis 2. EtOH abuse COMPLICATIONS/CHIEF COMPLAINT: Pancreatitis. HISTORY OF PRESENT ILLNESS: HOSPITAL COURSE: Patient was admitted for further evaluation and treatment. His symptoms resolved. Lipase WNL. Tolerated full liquid diet. Per [facility] protocol, he was scoring 5 on admission, and 1 upon discharge. He did have a minimal bump in his bilirubin, a liver sonogram showed no acute pathology. DISCHARGE MEDICATIONS: Please see below. ALLERGIES: Please see below. PHYSICAL EXAMINATION ON DISCHARGE: VITAL SIGNS: Please see below. GENERAL: NAD HEENT: NC/AT, EOMI CARDIOVASCULAR EXAMINATION: +S1S2, RRR RESPIRATORY EXAMINATION: CTA B/L ABDOMINAL EXAMINATION: soft, NT, +BS EXTREMITIES: no edema LABORATORY DATA: Please see below. ACTIVITY: [As tolerated]. DIET: As tolerated DISPOSITION: Discharge home DISCHARGE INSTRUCTIONS: 1. PCP in 3-5 days 2. diet as tolerated 3. abstain from alcohol DISCHARGE CONDITION: [Stable]. TIME SPENT ON DISCHARGE: 35 minutes. Vital Signs/I&Os Vital Signs Date Time Temp Pulse Resp B/P (MAP) Pulse Ox O2 Delivery O2 Flow Rate FiO2 03/17/19 14:00 97.5 98 18 139/58 (85) 100 03/16/19 13:20 Room Air I&O- Last 24 Hours up to 6 AM 03/17/19 05:59 Intake Total 2900 ml Output Total 975 ml Balance 1925 ml Laboratory Data Labs 24H Laboratory Tests 2 03/17/19 05:47: Nucleated Red Blood Cells % (auto) 0.0, Anion Gap 4L, Glomerular Filtration Rate > 60.0, Blood Urea Nitrogen 3L, Creatinine 0.70, Sodium Level 139, Potassium Level 3.2L, Chloride Level 102, Carbon Dioxide Level 33H, Calcium Level 8.3L, Aspartate Amino Transf (AST/SGOT) 44H, Alanine Aminotransferase (ALT/SGPT) 56, Alkaline Phosphatase 82, Total Bilirubin 1.2H, Total Protein 6.7, Albumin 3.2, Magnesium Level 2.0, Albumin/Globulin Ratio 0.91L, Lipase 325 CBC/BMP Laboratory Tests 03/17/19 05:47 Red Blood Count 4.78, Mean Corpuscular Volume 93.5, Mean Corpuscular Hemoglobin 32.2, Mean Corpuscular Hemoglobin Concent 34.5, Red Cell Distribution Width 12.9, Calcium Level 8.3 L, Aspartate Amino Transf (AST/SGOT) 44 H, Alanine Aminotransferase (ALT/SGPT) 56, Alkaline Phosphatase 82, Total Bilirubin 1.2 H, Total Protein 6.7, Albumin 3.2 Discharge Medications Scheduled Fluoxetine HCl (Prozac) 10 Mg Capsule, 10 MG PO DAILY, (Reported) 30MG TOTAL Fluoxetine HCl (Prozac) 20 Mg Capsule, 20 MG PO DAILY, (Reported) 30MG TOTAL Folic Acid (Folic Acid) 1 Mg Tablet, 1 MG PO DAILY Oxazepam (Oxazepam) 30 Mg Capsule, 30 MG PO ASDIRECTED 1 tab every 6 hours, then 1 tab every 8 hours, then 1 tab every 12 hours, then stop Thiamine Hcl (Vitamin B-1) 100 Mg Tablet, 100 MG PO DAILY Allergies Coded Allergies: amoxicillin (Verified Allergy, Intermediate, hives, 11/04/18) aspirin (Verified Allergy, Unknown, 11/04/18) ANSON JARAMILLO MD Mar 17, 2019 16:18
--- NOTE | 2019-03-18 06:59 | REP ---
Clinical: Elevated liver function tests and bilirubin levels. Technique: Real time bose scale and color evaluation using curved array transducer. Findings: Diffuse fatty infiltration to the liver noted without focal hepatic lesion identified. Pancreas is incompletely evaluated but visualized portions appear normal. The gallbladder is unremarkable and without gallstones, wall thickening, or pericholecystic fluid. No biliary ductal dilatation is appreciated and the common bile duct measures 4.0 mm diameter. The right kidney is normal in reniform shape without hydronephrosis and measures 13.0 x 5.8 x 5.0 cm. No ascites. Impression: Hepatic steatosis. Normal gallbladder and biliary system by ultrasound evaluation. Electronically Signed by German Peoples MD 03/18/2019 06:51 A
== END 2019-03-17 18:03 | disposition home or self-care (01) | DRG 282 ==
LOC: M ED 07:13 → M ED INP 10:23 → M MSPAV 13:28
PROVIDERS: ADMIT Internal Medicine; ATTEND Internal Medicine
DX: K85.90 Acute pancreatitis without necrosis or infection, unspecified (principal); F32.9 Major depressive disorder, single episode, unspecified; F10.10 Alcohol abuse, uncomplicated; Z79.899 Other long term (current) drug therapy; Z88.0 Allergy status to penicillin; Z88.6 Allergy status to analgesic agent

== ENCOUNTER 2019-04-09 07:07 | Emergency (ER) | payer OTHER ==
[~2019-04-09] VITALS: Ht 170.2 cm; Wt 70.5 kg
[~2019-04-09 07:07] MED LIST changes: +FOLI1TAB11 PO; +PROZ10CA7 PO; +PROZ20CA11 PO; +THIA100TA PO
[2019-04-09] MEDS ORDERED: NS 1,000 ML IV ONE (07:15)
[2019-04-09] MEDS ORDERED: PROZ40CA PO (07:22)
[2019-04-09] MEDS ORDERED: NALT50TA4 PO (07:22)
[2019-04-09] MEDS ORDERED: BUSP5TA PO (07:22)
[2019-04-09] MEDS ORDERED: ZOFR4TAB16 PO (07:24)
[2019-04-09] MEDS ORDERED: OXAZEPAM 15 MG CAP PO ONE (07:30)
[2019-04-09] MEDS ORDERED: VIVI380I IM (07:30)
[2019-04-09] MEDS ORDERED: OXAZ30CA2 PO (07:38)
[2019-04-09 08:25] LABS: BASO # 0.1 10^3/uL (0.0-0.2); EOS % 0.5 % (0.0-3.0); HEMATOCRIT 45.2 % (42.0-52.0); HEMOGLOBIN 15.7 g/dl (13.5-17.5); LYMPH % 16.8 % (24.0-44.0); MEAN CORPUSCULAR HGB CONC 34.7 g/dl (32.0-36.5); MEAN CORPUSCULAR VOLUME 92.1 fl (80.0-96.0); MONO # 0.5 10^3/uL (0.0-0.8); MONO % 8.2 % (0.0-5.0); NEUTROPHILS # 4.5 10^3/uL (1.8-7.7); NEUTROPHILS % 73.3 % (36.0-66.0); PLATELET COUNT, AUTOMATED 229 10^3/uL (150-450); RED BLOOD COUNT 4.91 10^6/uL (4.30-6.10); WHITE BLOOD COUNT 6.1 10^3/uL (4.0-10.0)
[2019-04-09 08:54] LABS: ALBUMIN 3.7 GM/DL (3.2-5.2); BILIRUBIN,DIRECT 0.2 MG/DL (0.0-0.2); BILIRUBIN,TOTAL 0.6 MG/DL (0.2-1.0); TOTAL PROTEIN 7.2 GM/DL (6.4-8.2)
[2019-04-09 09:17] VITALS: BP 127/64
== END 2019-04-09 09:20 | disposition home or self-care (01) ==
LOC: M ED 07:07
DX: F10.239 Alcohol dependence with withdrawal, unspecified (principal); Z79.899 Other long term (current) drug therapy; Z88.0 Allergy status to penicillin; Z88.8 Allergy status to other drugs, medicaments and biological substances; Z88.5 Allergy status to narcotic agent

== ENCOUNTER → 2019-04-24 | Outpatient (CLI) | payer OTHER ==
[~2019-04-24] MED LIST changes: +BUSP5TA PO; +PROZ40CA PO; +VIVI380I IM
[2019-04-24 10:27] LABS: BILIRUBIN,DIRECT 0.1 MG/DL (0.0-0.2); BILIRUBIN,TOTAL 0.4 MG/DL (0.2-1.0); TOTAL PROTEIN 7.5 GM/DL (6.4-8.2)
== END ==
LOC: M LAB 09:17
PROVIDERS: ATTEND Emergency Medicine
DX: Z00.00 Encounter for general adult medical examination without abnormal findings (principal); R94.5 Abnormal results of liver function studies

== ENCOUNTER → 2019-05-01 | Outpatient (CLI) | payer OTHER ==
[2019-05-01 09:26] LABS: BASO # 0.1 10^3/uL (0.0-0.2); EOS # 0.5 10^3/uL (0.0-0.5); EOS % 5.1 % (0.0-3.0); HEMATOCRIT 45.9 % (42.0-52.0); HEMOGLOBIN 15.8 g/dl (13.5-17.5); LYMPH # 1.3 10^3/uL (1.5-5.0); LYMPH % 13.1 % (24.0-44.0); MEAN CORPUSCULAR HEMOGLOBIN 32.1 pg (27.0-33.0); MEAN CORPUSCULAR HGB CONC 34.4 g/dl (32.0-36.5); MEAN CORPUSCULAR VOLUME 93.3 fl (80.0-96.0); NEUTROPHILS # 7.2 10^3/uL (1.5-8.5); NEUTROPHILS % 70.5 % (36.0-66.0); PLATELET COUNT, AUTOMATED 320 10^3/uL (150-450); RED BLOOD COUNT 4.92 10^6/uL (4.30-6.10); WHITE BLOOD COUNT 10.2 10^3/uL (4.0-10.0)
[2019-05-01 10:20] LABS: ALBUMIN 3.7 GM/DL (3.2-5.2); ALT/SGPT 58 U/L (12-78); BILIRUBIN,TOTAL 0.4 MG/DL (0.2-1.0); BLOOD UREA NITROGEN 6 MG/DL (7-18); CARBON DIOXIDE LEVEL 31 MEQ/L (21-32); CHLORIDE LEVEL 99 MEQ/L (98-107); CHOLESTEROL LEVEL 290 MG/DL (<200); CHOLESTEROL RISK RATIO 3.452 (<5); CREATININE FOR GFR 0.65 MG/DL (0.70-1.30); GLOMERULAR FILTRATION RATE > 60.0 (>60); GLUCOSE, FASTING 99 MG/DL (70-100); HDL CHOLESTEROL 84 MG/DL (>40); LDL CHOLESTEROL 164 MG/DL (<100); NON-HDL-C 206 MG/DL; POTASSIUM SERUM 4.1 MEQ/L (3.5-5.1); SODIUM LEVEL 136 MEQ/L (136-145); TOTAL PROTEIN 7.2 GM/DL (6.4-8.2); TRIGLYCERIDES LEVEL 212 MG/DL (<150)
== END ==
LOC: M LAB 08:40
PROVIDERS: ATTEND Physician Assistant
DX: Z00.00 Encounter for general adult medical examination without abnormal findings (principal)

== ENCOUNTER → 2019-05-13 | Outpatient (CLI) | payer OTHER ==
[2019-05-13 08:35] LABS: ALBUMIN 3.8 GM/DL (3.2-5.2); ALT/SGPT 60 U/L (12-78); BILIRUBIN,TOTAL 0.4 MG/DL (0.2-1.0); BLOOD UREA NITROGEN 10 MG/DL (7-18); CALCIUM LEVEL 8.9 MG/DL (8.5-10.1); CARBON DIOXIDE LEVEL 31 MEQ/L (21-32); CHLORIDE LEVEL 100 MEQ/L (98-107); CREATININE FOR GFR 0.74 MG/DL (0.70-1.30); GLOMERULAR FILTRATION RATE > 60.0 (>60); GLUCOSE, FASTING 88 MG/DL (70-100); POTASSIUM SERUM 4.1 MEQ/L (3.5-5.1); SODIUM LEVEL 138 MEQ/L (136-145); TOTAL PROTEIN 7.9 GM/DL (6.4-8.2)
== END ==
LOC: M LAB 07:06
PROVIDERS: ATTEND Emergency Medicine
DX: K76.9 Liver disease, unspecified (principal); R94.5 Abnormal results of liver function studies

== ENCOUNTER → 2019-06-09 | Outpatient (CLI) | payer OTHER ==
[2019-06-09 16:51] LABS: ALBUMIN 3.9 GM/DL (3.2-5.2); BILIRUBIN,DIRECT 0.1 MG/DL (0.0-0.2); BILIRUBIN,TOTAL 0.5 MG/DL (0.2-1.0); TOTAL PROTEIN 7.7 GM/DL (6.4-8.2)
== END ==
LOC: M LAB 15:01
PROVIDERS: ATTEND Emergency Medicine
DX: K76.9 Liver disease, unspecified (principal)

== ENCOUNTER → 2019-07-06 | Outpatient (CLI) | payer OTHER ==
[2019-07-06 09:20] LABS: ALBUMIN 3.8 GM/DL (3.2-5.2); ALT/SGPT 189 U/L (12-78); BILIRUBIN,TOTAL 0.7 MG/DL (0.2-1.0); BLOOD UREA NITROGEN 6 MG/DL (7-18); CALCIUM LEVEL 8.5 MG/DL (8.5-10.1); CARBON DIOXIDE LEVEL 28 MEQ/L (21-32); CHLORIDE LEVEL 102 MEQ/L (98-107); CREATININE FOR GFR 0.74 MG/DL (0.70-1.30); GLOMERULAR FILTRATION RATE > 60.0 (>60); GLUCOSE, FASTING 101 MG/DL (70-100); POTASSIUM SERUM 3.8 MEQ/L (3.5-5.1); SODIUM LEVEL 138 MEQ/L (136-145); THYROXINE (T4) 6.7 UG/DL (4.5-12.0); TOTAL PROTEIN 7.5 GM/DL (6.4-8.2)
[2019-07-06 09:35] LABS: HEMOGLOBIN A1c 5.3 %
[2019-07-06 10:25] LABS: TESTOSTERONE 837 NG/DL (241-827); TOTAL 25(OH) VITAMIN D 27.5 NG/ML (30.0-100.0); TOTAL T3 116.4 NG/DL (60.0-181.0)
== END ==
LOC: M LAB 08:19
PROVIDERS: ATTEND Family Medicine
DX: E03.9 Hypothyroidism, unspecified (principal); K76.9 Liver disease, unspecified

== ENCOUNTER → 2019-07-29 | Outpatient (CLI) | payer OTHER ==
[2019-07-29 11:46] LABS: ALT/SGPT 147 U/L (12-78)
== END ==
LOC: M LAB 10:41
PROVIDERS: ATTEND Family Medicine
DX: K76.9 Liver disease, unspecified (principal); D64.9 Anemia, unspecified

== ENCOUNTER → 2019-08-26 | Outpatient (CLI) | payer OTHER ==
[2019-08-26 13:36] LABS: ALT/SGPT 163 U/L (12-78)
== END ==
LOC: M LAB 12:16
PROVIDERS: ATTEND Family Medicine
DX: K76.9 Liver disease, unspecified (principal)

== ENCOUNTER → 2019-09-28 | Outpatient (CLI) | payer OTHER ==
[2019-09-28 13:37] LABS: ALT/SGPT 179 U/L (12-78)
== END ==
LOC: M LAB 12:22
PROVIDERS: ATTEND Family Medicine
DX: K75.9 Inflammatory liver disease, unspecified (principal)

== ENCOUNTER → 2019-12-25 | Outpatient (CLI) | payer OTHER ==
[2019-12-25 15:40] LABS: ALBUMIN 4.1 GM/DL (3.2-5.2); BILIRUBIN,DIRECT 0.2 MG/DL (0.0-0.2); BILIRUBIN,TOTAL 0.9 MG/DL (0.2-1.0); TOTAL PROTEIN 7.8 GM/DL (6.4-8.2)
== END ==
LOC: M WUC 12:28
PROVIDERS: ATTEND Emergency Medicine
DX: R10.9 Unspecified abdominal pain (principal)

== ENCOUNTER 2020-02-11 07:55 | Emergency (ER) | payer OTHER ==
[~2020-02-11] VITALS: Ht 172.7 cm; Wt 68.4 kg
[2020-02-11] MEDS ORDERED: BUSP30TA (08:03)
[2020-02-11] MEDS ORDERED: OXAZ30CA2 PO (08:15)
[2020-02-11] MEDS ORDERED: OXAZEPAM 15 MG CAP PO ONE (08:15)
[2020-02-11 08:36] LABS: HEMATOCRIT 43.9 % (42.0-52.0); MEAN CORPUSCULAR HEMOGLOBIN 31.5 pg (27.0-33.0); MEAN CORPUSCULAR HGB CONC 34.2 g/dl (32.0-36.5); MEAN CORPUSCULAR VOLUME 92.2 fl (80.0-96.0); PLATELET COUNT, AUTOMATED 269 10^3/uL (150-450); RED BLOOD COUNT 4.76 10^6/uL (4.30-6.10); WHITE BLOOD COUNT 5.1 10^3/uL (4.0-10.0)
[2020-02-11 08:50] VITALS: BP 129/79
[2020-02-11 08:58] LABS: ALBUMIN 3.8 GM/DL (3.2-5.2); ALT/SGPT 125 U/L (12-78); BILIRUBIN,TOTAL 0.5 MG/DL (0.2-1.0); BLOOD UREA NITROGEN 6 MG/DL (7-18); CALCIUM LEVEL 8.7 MG/DL (8.5-10.1); CARBON DIOXIDE LEVEL 26 MEQ/L (21-32); CHLORIDE LEVEL 100 MEQ/L (98-107); CREATININE FOR GFR 0.63 MG/DL (0.70-1.30); GLOMERULAR FILTRATION RATE > 60.0 (>60); GLUCOSE, FASTING 91 MG/DL (70-100); POTASSIUM SERUM 3.9 MEQ/L (3.5-5.1); SODIUM LEVEL 135 MEQ/L (136-145); TOTAL PROTEIN 7.6 GM/DL (6.4-8.2)
== END 2020-02-11 09:01 | disposition home or self-care (01) ==
LOC: M ED 07:55
DX: F10.239 Alcohol dependence with withdrawal, unspecified (principal)

== ENCOUNTER → 2021-07-04 | Outpatient (CLI) | payer OTHER ==
[~2021-07-04] MED LIST changes: +BUSP30TA
[2021-07-04 12:55] LABS: ALBUMIN 3.8 GM/DL (3.2-5.2); ALT/SGPT 121 U/L (12-78); BILIRUBIN,TOTAL 0.7 MG/DL (0.2-1.0); BLOOD UREA NITROGEN 5 MG/DL (7-18); CALCIUM LEVEL 8.9 MG/DL (8.5-10.1); CARBON DIOXIDE LEVEL 28 MEQ/L (21-32); CHLORIDE LEVEL 98 MEQ/L (98-107); CHOLESTEROL LEVEL 272 MG/DL (<200); CHOLESTEROL RISK RATIO 2.247 (<5); CREATININE FOR GFR 0.62 MG/DL (0.70-1.30); GLOMERULAR FILTRATION RATE > 60.0 (>60); GLUCOSE, FASTING 101 MG/DL (70-100); HDL CHOLESTEROL 121 MG/DL (>40); LDL CHOLESTEROL 134 MG/DL (<100); NON-HDL-C 151 MG/DL; SODIUM LEVEL 136 MEQ/L (136-145); TOTAL PROTEIN 7.6 GM/DL (6.4-8.2); TRIGLYCERIDES LEVEL 86 MG/DL (<150)
== END ==
LOC: M WUC 08:54
PROVIDERS: ATTEND Nurse Practitioner Family
DX: Z00.00 Encounter for general adult medical examination without abnormal findings (principal)

== ENCOUNTER → 2021-10-01 | Outpatient (CLI) | payer OTHER ==
[2021-10-01 12:46] LABS: ALBUMIN 3.9 GM/DL (3.2-5.2); BILIRUBIN,DIRECT 0.4 MG/DL (0.0-0.2); BILIRUBIN,TOTAL 0.8 MG/DL (0.2-1.0); TOTAL PROTEIN 7.6 GM/DL (6.4-8.2)
== END ==
LOC: M WUC 09:17
PROVIDERS: ATTEND Surgery Vascular Surgery
DX: Z79.899 Other long term (current) drug therapy (principal)

== ENCOUNTER → 2022-03-02 | Outpatient (CLI) | payer OTHER ==
[2022-03-02 10:03] LABS: BASO # 0.1 10^3/uL (0.0-0.2); BASO % 1.5 % (0.0-1.0); EOS # 0.1 10^3/uL (0.0-0.5); EOS % 1.2 % (0.0-3.0); HEMATOCRIT 40.1 % (42.0-52.0); HEMOGLOBIN 13.4 g/dl (13.5-17.5); LYMPH # 1.2 10^3/uL (1.5-5.0); LYMPH % 20.3 % (24.0-44.0); MEAN CORPUSCULAR HEMOGLOBIN 31.9 pg (27.0-33.0); MEAN CORPUSCULAR HGB CONC 33.4 g/dl (32.0-36.5); MEAN CORPUSCULAR VOLUME 95.5 fl (80.0-96.0); MONO # 1.1 10^3/uL (0.0-0.8); MONO % 18.3 % (2.0-8.0); NEUTROPHILS # 3.6 10^3/uL (1.5-8.5); NEUTROPHILS % 58.4 % (36.0-66.0); WHITE BLOOD COUNT 6.1 10^3/uL (4.0-10.0)
[2022-03-02 10:12] LABS: INR 1.2; PROTHROMBIN TIME 15.7 SECONDS (12.7-14.5)
[2022-03-02 10:27] LABS: PLATELET COUNT, AUTOMATED 83 10^3/uL (150-450)
[2022-03-02 10:36] LABS: ALBUMIN 3.6 GM/DL (3.2-5.2); ALT/SGPT 73 U/L (12-78); BILIRUBIN,TOTAL 1.2 MG/DL (0.2-1.0); BLOOD UREA NITROGEN 6 MG/DL (7-18); CALCIUM LEVEL 9.1 MG/DL (8.5-10.1); CARBON DIOXIDE LEVEL 27 MEQ/L (21-32); CHLORIDE LEVEL 102 MEQ/L (98-107); CREATININE FOR GFR 0.58 MG/DL (0.70-1.30); GLOMERULAR FILTRATION RATE > 60.0 (>60); GLUCOSE, FASTING 113 MG/DL (70-100); LDH LACTATE DEHYDROGENASE 236 U/L (87-241); LIPASE 941 U/L (73-393); MAGNESIUM LEVEL 1.7 MG/DL (1.8-2.4); POTASSIUM SERUM 4.1 MEQ/L (3.5-5.1); SODIUM LEVEL 137 MEQ/L (136-145); TOTAL PROTEIN 7.2 GM/DL (6.4-8.2)
[2022-03-04 11:27] LABS: TOTAL 25(OH) VITAMIN D 31.7 NG/ML (30.0-100.0)
[2022-03-04 11:28] LABS: VITAMIN B12 LEVEL 554 PG/ML
== END ==
LOC: M LAB 09:06
PROVIDERS: ATTEND Emergency Medicine
DX: R63.4 Abnormal weight loss (principal); R63.0 Anorexia

== ENCOUNTER → 2022-03-02 | Outpatient (CLI) | payer OTHER ==
[2022-03-02 10:23] LABS: ALBUMIN 3.5 GM/DL (3.2-5.2); BILIRUBIN,DIRECT 0.5 MG/DL (0.0-0.2); BILIRUBIN,TOTAL 1.2 MG/DL (0.2-1.0); TOTAL PROTEIN 7.1 GM/DL (6.4-8.2)
== END ==
LOC: M LAB 09:09
DX: Z51.81 Encounter for therapeutic drug level monitoring (principal)

== ENCOUNTER → 2022-03-15 | Outpatient (CLI) | payer OTHER ==
[~2022-03-15] MED LIST changes: +GASTROGRAFIN SOLUTION 30ML (Q9963) As Ordered ONE; +ISOVUE-370 76% 100ML VIAL As Ordered ONE
== END ==
LOC: M RAD 12:41
PROVIDERS: ATTEND Nurse Practitioner Family
DX: R16.0 Hepatomegaly, not elsewhere classified (principal); K76.0 Fatty (change of) liver, not elsewhere classified; R74.8 Abnormal levels of other serum enzymes
CPT/HCPCS: 74177; Q9963; Q9967

== ENCOUNTER 2022-04-27 09:11 | Inpatient (IN) | payer OTHER ==
[~2022-04-27] VITALS: Ht 170.2 cm; Wt 62.3 kg
[~2022-04-27 09:11] MED LIST changes: -BUSP30TA; +BUSP30TA PO; -GASTROGRAFIN SOLUTION 30ML (Q9963) As Ordered ONE; -ISOVUE-370 76% 100ML VIAL As Ordered ONE
[2022-04-27] MEDS ORDERED: NS 1,000 ML IV ONE (09:20)
[2022-04-27] MEDS ORDERED: AZIT-12 PO (09:21)
[2022-04-27] MEDS ORDERED: FLUC200T4 PO (09:21)
[2022-04-27] MEDS ORDERED: ONDANSETRON 4MG 2ML VIAL IV ONE (09:40)
[2022-04-27 09:48] LABS: BASO # 0.1 10^3/uL (0.0-0.2); BASO % 1.2 % (0.0-1.0); EOS # 0.1 10^3/uL (0.0-0.5); EOS % 0.6 % (0.0-3.0); HEMATOCRIT 42.7 % (42.0-52.0); HEMOGLOBIN 14.4 g/dl (13.5-17.5); LYMPH # 1.7 10^3/uL (1.5-5.0); MEAN CORPUSCULAR HEMOGLOBIN 32.1 pg (27.0-33.0); MEAN CORPUSCULAR HGB CONC 33.7 g/dl (32.0-36.5); MEAN CORPUSCULAR VOLUME 95.1 fl (80.0-96.0); MONO # 1.2 10^3/uL (0.0-0.8); MONO % 11.8 % (2.0-8.0); NEUTROPHILS # 6.9 10^3/uL (1.5-8.5); NEUTROPHILS % 68.9 % (36.0-66.0); PLATELET COUNT, AUTOMATED 134 10^3/uL (150-450); RED BLOOD COUNT 4.49 10^6/uL (4.30-6.10); WHITE BLOOD COUNT 10.1 10^3/uL (4.0-10.0)
[2022-04-27 10:00] LABS: INR 1.21; PROTHROMBIN TIME 15.7 SECONDS (12.7-14.5)
[2022-04-27] MEDS: GASTROGRAFIN SOLUTION 30ML PO SCH ×2 (10:11→10:40)
[2022-04-27 10:27] LABS: ALBUMIN 3.9 GM/DL (3.2-5.2); ALT/SGPT 65 U/L (12-78); BILIRUBIN,DIRECT 0.7 MG/DL (0.0-0.2); BILIRUBIN,TOTAL 1.7 MG/DL (0.2-1.0); BLOOD UREA NITROGEN 5 MG/DL (7-18); CARBON DIOXIDE LEVEL 27 MEQ/L (21-32); CHLORIDE LEVEL 94 MEQ/L (98-107); CREATININE FOR GFR 0.62 MG/DL (0.70-1.30); GLOMERULAR FILTRATION RATE > 60.0 (>60); GLUCOSE, FASTING 93 MG/DL (70-100); LIPASE 684 U/L (73-393); POTASSIUM SERUM 4.2 MEQ/L (3.5-5.1); SODIUM LEVEL 127 MEQ/L (136-145); TOTAL PROTEIN 8.3 GM/DL (6.4-8.2)
[2022-04-27] MEDS ORDERED: ISOVUE-370 76% 100ML VIAL As Ordered ONE (11:37)
[2022-04-27] MEDS ORDERED: OXAZEPAM 10MG CAP PO SCH (12:00)
[2022-04-27 12:35] LABS: RSV AMPLIFICATION NEGATIVE (NEGATIVE)
[2022-04-27] MEDS ORDERED: flumazeniL 0.5 MG/5 ML VIAL IV PRN (12:50)
[2022-04-27] MEDS ORDERED: ONDANSETRON 4MG 2ML VIAL IV PRN (12:55)
[2022-04-27] MEDS ORDERED: DEXTROSE 50% 50 ML SYRINGE IV PRN (13:00)
[2022-04-27] MEDS ORDERED: GLUCAGON INJ 1MG VIAL SC PRN (13:00)
[2022-04-27] MEDS ORDERED: HYDROMORPHONE HCL 0.5 MG/ 0.5 ML SYRINGE (J1170 PER 1) IV ONE (13:00)
[2022-04-27] MEDS ORDERED: PANTOPRAZOLE 40MG VIAL IV ONE (13:00)
[2022-04-27] MEDS ORDERED: GLUCOSE 4GM CHEW TABLET PO PRN (13:00)
[2022-04-27] MEDS ORDERED: FOLI1TAB11 PO (13:05)
[2022-04-27] MEDS ORDERED: THIA100T7 PO (13:05)
[2022-04-27] MEDS: THIAMINE 100 MG TAB PO SCH ×2 (13:06→20:48)
[2022-04-27] MEDS: NS 1,000 ML IV SCH ×2 (13:06→15:32)
[2022-04-27] MEDS: FOLIC ACID 1MG TAB PO SCH (13:06)
[2022-04-27] MEDS: MULTIVITAMINS/MINERALS THERAP 1 TAB PO SCH (13:06)
[2022-04-27] MEDS ORDERED: HOME MED LIST COMPLETE! XX SCH (13:10)
[2022-04-27] MEDS ORDERED: OXAZEPAM 10MG CAP PO ONE (13:40)
[2022-04-27 14:14] LABS: OSMOLALITY SERUM 321 MOSM/KG (275-295)
[2022-04-27] MEDS: SUCRALFATE SUSP 1GM/10ML UD PO SCH ×2 (14:38→18:46)
[2022-04-27] MEDS: cloNIDine 0.2 MG TAB PO SCH ×2 (14:38→18:00)
[2022-04-27 15:15] LABS: CK-MB VALUE MASS 2.5 NG/ML (<3.6); MB/CK RELATIVE INDEX 1.66 (< OR =4)
[2022-04-27 15:24] LABS: BLOOD UREA NITROGEN 6 MG/DL (7-18); CALCIUM LEVEL 8.2 MG/DL (8.5-10.1); CARBON DIOXIDE LEVEL 26 MEQ/L (21-32); CHLORIDE LEVEL 99 MEQ/L (98-107); CREATININE FOR GFR 0.53 MG/DL (0.70-1.30); FERRITIN 686 NG/ML (26-388); GLOMERULAR FILTRATION RATE > 60.0 (>60); GLUCOSE, FASTING 72 MG/DL (70-100); IRON (FE) 89 UG/DL (65-175); POTASSIUM SERUM 3.8 MEQ/L (3.5-5.1); SODIUM LEVEL 131 MEQ/L (136-145); TOTAL IRON BINDING CAPACITY 297 UG/DL (250-450)
[2022-04-27 15:49] LABS: HEMOGLOBIN A1c 5.1 %
[2022-04-27 16:00] VITALS: BP 112/68
[2022-04-27] MEDS ORDERED: NS 1,000 ML IV SCH (16:00)
[2022-04-27] MEDS: KCL 10MEQ IN D5/0.45NS 1000ML 1,000 ML IV SCH (17:08)
[2022-04-27] MEDS ORDERED: traMADol 50 MG TAB PO PRN ×2 (17:35)
[2022-04-27] MEDS: OXAZEPAM 15MG CAP PO SCH (18:46)
[2022-04-27 20:00] VITALS: BP 128/79
[2022-04-27] MEDS: PANTOPRAZOLE 40MG VIAL IV SCH (20:47)
[2022-04-27] MEDS: LORazepam 2 MG TAB PO PRN (20:48)
[2022-04-28] VITALS: BP 127/79
[2022-04-28] MEDS: SUCRALFATE SUSP 1GM/10ML UD PO SCH ×4 (00:19→18:04)
[2022-04-28] MEDS: OXAZEPAM 15MG CAP PO SCH ×2 (00:20→06:08)
[2022-04-28] MEDS: KCL 10MEQ IN D5/0.45NS 1000ML 1,000 ML IV SCH ×2 (00:20→06:08)
[2022-04-28 06:00] VITALS: BP 122/78
[2022-04-28] MEDS: cloNIDine 0.2 MG TAB PO SCH ×5 (06:00→23:53)
[2022-04-28 07:09] LABS: HEMATOCRIT 37.2 % (42.0-52.0); HEMOGLOBIN 12.8 g/dl (13.5-17.5); MEAN CORPUSCULAR HGB CONC 34.4 g/dl (32.0-36.5); MEAN CORPUSCULAR VOLUME 95.9 fl (80.0-96.0); RED BLOOD COUNT 3.88 10^6/uL (4.30-6.10); WHITE BLOOD COUNT 5.5 10^3/uL (4.0-10.0)
[2022-04-28 07:40] LABS: PLATELET COUNT, AUTOMATED 98 10^3/uL (150-450)
[2022-04-28 08:07] LABS: ALT/SGPT 47 U/L (12-78); BILIRUBIN,TOTAL 1.7 MG/DL (0.2-1.0); BLOOD UREA NITROGEN 5 MG/DL (7-18); CALCIUM LEVEL 7.7 MG/DL (8.5-10.1); CARBON DIOXIDE LEVEL 28 MEQ/L (21-32); CHLORIDE LEVEL 100 MEQ/L (98-107); CREATININE FOR GFR 0.54 MG/DL (0.70-1.30); GLOMERULAR FILTRATION RATE > 60.0 (>60); GLUCOSE, FASTING 128 MG/DL (70-100); LIPASE 385 U/L (73-393); POTASSIUM SERUM 3.6 MEQ/L (3.5-5.1); SODIUM LEVEL 133 MEQ/L (136-145); TOTAL PROTEIN 6.6 GM/DL (6.4-8.2)
[2022-04-28] MEDS: FOLIC ACID 1MG TAB PO SCH (09:18)
[2022-04-28] MEDS: MULTIVITAMINS/MINERALS THERAP 1 TAB PO SCH (09:18)
[2022-04-28] MEDS: THIAMINE 100 MG TAB PO SCH (09:18)
[2022-04-28] MEDS: PANTOPRAZOLE 40MG VIAL IV SCH (09:19)
[2022-04-28] MEDS ORDERED: OXAZEPAM 15MG CAP PO ONE (10:00)
[2022-04-28] MEDS ORDERED: PROHANCE 279.3MG/ML 15ML VIAL As Ordered ONE (10:59)
[2022-04-28] MEDS ORDERED: diazePAM 5MG TABLET PO ONE ×2 (12:00→17:15)
[2022-04-28] MEDS: SODIUM CHLORIDE 1 GM TAB PO SCH ×2 (12:26→18:05)
[2022-04-28] MEDS: NEOSPORIN TOP OINT 15GM TOP SCH ×2 (12:29→22:10)
[2022-04-28 14:00] VITALS: BP 118/77
[2022-04-28 14:16] VITALS: BP 118/77
[2022-04-28] MEDS: THIAMINE INJection 500 MG in NS 100 ML IV SCH ×2 (14:21→22:10)
[2022-04-28 16:44] VITALS: BP 116/76
[2022-04-28] MEDS: LORazepam 2 MG TAB PO PRN (16:49)
[2022-04-28] MEDS ORDERED: traMADol 50 MG TAB PO PRN ×2 (19:00)
[2022-04-28 22:00] VITALS: BP 119/81
[2022-04-28] MEDS: PANTOPRAZOLE 40MG TAB (PROTONIX) PO SCH (22:09)
[2022-04-28] MEDS: SUCRALFATE 1 GM TAB PO SCH (22:09)
[2022-04-29] MEDS ORDERED: diazePAM 5MG TABLET PO ONE
[2022-04-29 06:00] VITALS: BP 121/81
[2022-04-29] MEDS: cloNIDine 0.2 MG TAB PO SCH ×3 (06:00→17:04)
[2022-04-29] MEDS ORDERED: diazePAM 5MG TABLET PO SCH (06:00)
[2022-04-29] MEDS: THIAMINE INJection 500 MG in NS 100 ML IV SCH ×3 (06:06→21:27)
[2022-04-29 06:51] LABS: HEMATOCRIT 40.7 % (42.0-52.0); HEMOGLOBIN 13.8 g/dl (13.5-17.5); MEAN CORPUSCULAR HEMOGLOBIN 32.7 pg (27.0-33.0); MEAN CORPUSCULAR HGB CONC 33.9 g/dl (32.0-36.5); MEAN CORPUSCULAR VOLUME 96.4 fl (80.0-96.0); PLATELET COUNT, AUTOMATED 119 10^3/uL (150-450); RED BLOOD COUNT 4.22 10^6/uL (4.30-6.10); WHITE BLOOD COUNT 7.7 10^3/uL (4.0-10.0)
[2022-04-29 07:34] LABS: ALBUMIN 3.3 GM/DL (3.2-5.2); ALT/SGPT 47 U/L (12-78); BILIRUBIN,TOTAL 1.4 MG/DL (0.2-1.0); BLOOD UREA NITROGEN 5 MG/DL (7-18); CALCIUM LEVEL 9.1 MG/DL (8.5-10.1); CARBON DIOXIDE LEVEL 31 MEQ/L (21-32); CHLORIDE LEVEL 101 MEQ/L (98-107); CREATININE FOR GFR 0.61 MG/DL (0.70-1.30); GLOMERULAR FILTRATION RATE > 60.0 (>60); GLUCOSE, FASTING 95 MG/DL (70-100); LIPASE 670 U/L (73-393); POTASSIUM SERUM 3.7 MEQ/L (3.5-5.1); SODIUM LEVEL 137 MEQ/L (136-145); TOTAL PROTEIN 7.2 GM/DL (6.4-8.2)
[2022-04-29] MEDS: MULTIVITAMINS/MINERALS THERAP 1 TAB PO SCH (07:53)
[2022-04-29] MEDS: PANTOPRAZOLE 40MG TAB (PROTONIX) PO SCH ×2 (07:53→21:27)
[2022-04-29] MEDS: FOLIC ACID 1MG TAB PO SCH (07:53)
[2022-04-29] MEDS: SUCRALFATE 1 GM TAB PO SCH ×4 (07:53→21:27)
[2022-04-29] MEDS: SODIUM CHLORIDE 1 GM TAB PO SCH ×3 (07:53→17:04)
[2022-04-29] MEDS: NEOSPORIN TOP OINT 15GM TOP SCH ×2 (07:53→21:28)
[2022-04-29 07:54] VITALS: BP 116/83
[2022-04-29] MEDS: NS 1,000 ML IV SCH ×2 (09:10→19:44)
[2022-04-29 13:30] LABS: HEPATITIS B SURFACE ANTIGEN NEGATIVE (NEGATIVE)
[2022-04-29 13:48] LABS: CA19-9 TUMOR MARKER,CARBOHYDRA 24.8 U/ML (<35.0)
[2022-04-29 13:56] LABS: HEPATITIS B CORE ANTIBODY IGM NEGATIVE (NEGATIVE); HEPATITIS C VIRUS ABY INDEX < 0.0 INDEX (<0.8)
[2022-04-29 14:00] VITALS: BP 118/83
[2022-04-29] MEDS: diazePAM 10 MG TAB PO SCH ×2 (14:29→21:27)
[2022-04-29 20:00] VITALS: BP 138/90
[2022-04-29 21:45] VITALS: BP 132/84
[2022-04-30] MEDS: cloNIDine 0.2 MG TAB PO SCH ×3 (00:56→11:36)
[2022-04-30 06:00] VITALS: BP 107/62
[2022-04-30] MEDS: THIAMINE INJection 500 MG in NS 100 ML IV SCH (06:14)
[2022-04-30] MEDS: diazePAM 10 MG TAB PO SCH ×2 (06:15→13:21)
[2022-04-30 06:18] VITALS: BP 115/76
[2022-04-30 06:49] LABS: HEMOGLOBIN 14.3 g/dl (13.5-17.5); MEAN CORPUSCULAR HEMOGLOBIN 32.4 pg (27.0-33.0); MEAN CORPUSCULAR HGB CONC 33.3 g/dl (32.0-36.5); MEAN CORPUSCULAR VOLUME 97.3 fl (80.0-96.0); PLATELET COUNT, AUTOMATED 137 10^3/uL (150-450); RED BLOOD COUNT 4.42 10^6/uL (4.30-6.10); WHITE BLOOD COUNT 7.3 10^3/uL (4.0-10.0)
[2022-04-30 07:07] LABS: ALBUMIN 3.3 GM/DL (3.2-5.2); ALT/SGPT 55 U/L (12-78); BILIRUBIN,TOTAL 1.6 MG/DL (0.2-1.0); BLOOD UREA NITROGEN 3 MG/DL (7-18); CARBON DIOXIDE LEVEL 28 MEQ/L (21-32); CHLORIDE LEVEL 104 MEQ/L (98-107); CREATININE FOR GFR 0.56 MG/DL (0.70-1.30); GLOMERULAR FILTRATION RATE > 60.0 (>60); GLUCOSE, FASTING 102 MG/DL (70-100); LIPASE 335 U/L (73-393); POTASSIUM SERUM 3.7 MEQ/L (3.5-5.1); SODIUM LEVEL 136 MEQ/L (136-145); TOTAL PROTEIN 7.4 GM/DL (6.4-8.2)
[2022-04-30] MEDS: FOLIC ACID 1MG TAB PO SCH (08:51)
[2022-04-30] MEDS: SODIUM CHLORIDE 1 GM TAB PO SCH ×2 (08:51→11:30)
[2022-04-30] MEDS: MULTIVITAMINS/MINERALS THERAP 1 TAB PO SCH (08:51)
[2022-04-30] MEDS: PANTOPRAZOLE 40MG TAB (PROTONIX) PO SCH (08:51)
[2022-04-30] MEDS: SUCRALFATE 1 GM TAB PO SCH ×2 (08:51→11:35)
[2022-04-30] MEDS: NEOSPORIN TOP OINT 15GM TOP SCH (08:53)
[2022-04-30 11:36] VITALS: BP 109/72
[2022-04-30] MEDS ORDERED: VALI2TAB PO (11:37)
[2022-04-30] MEDS ORDERED: VITMTA PO (11:37)
[2022-04-30 17:07] LABS: ANTINUCLEAR ANTIBODIES DIRECT Negative (Negative); CERULOPLASMIN 20.7 mg/dL (16.0-31.0)
[2022-05-01] MEDS ORDERED: THIAMINE INJection 250 MG in NS 100 ML IV SCH (09:00)
== END 2022-04-30 14:35 | disposition home or self-care (01) | DRG 439 ==
LOC: M ED 09:11 → M ED INP 12:47 → M MSPAV 16:00
PROVIDERS: ADMIT General Practice; ATTEND Internal Medicine
DX: K85.20 Alcohol induced acute pancreatitis without necrosis or infection (principal); F10.139 Alcohol abuse with withdrawal, unspecified; E87.1 Hypo-osmolality and hyponatremia; K29.20 Alcoholic gastritis without bleeding; F42.9 Obsessive-compulsive disorder, unspecified; K70.0 Alcoholic fatty liver; R63.4 Abnormal weight loss; F32.A Depression, unspecified; L98.9 Disorder of the skin and subcutaneous tissue, unspecified; Z88.0 Allergy status to penicillin; Z88.5 Allergy status to narcotic agent; Z88.6 Allergy status to analgesic agent; Z79.899 Other long term (current) drug therapy

== ENCOUNTER → 2022-06-15 | Outpatient (CLI) | payer OTHER ==
[~2022-06-15] MED LIST changes: +AZIT-12 PO; +FLUC200T4 PO; +THIA100T7 PO; +VALI2TAB PO; +VITMTA PO
[2022-06-15 10:14] LABS: BASO # 0.1 10^3/uL (0.0-0.2); BASO % 1.4 % (0.0-1.0); EOS # 0.1 10^3/uL (0.0-0.5); EOS % 1.1 % (0.0-3.0); HEMATOCRIT 42.3 % (42.0-52.0); HEMOGLOBIN 14.5 g/dl (13.5-17.5); LYMPH # 1.9 10^3/uL (1.5-5.0); LYMPH % 30.2 % (24.0-44.0); MEAN CORPUSCULAR HGB CONC 34.3 g/dl (32.0-36.5); MEAN CORPUSCULAR VOLUME 96.1 fl (80.0-96.0); MONO # 0.9 10^3/uL (0.0-0.8); MONO % 14.6 % (2.0-8.0); NEUTROPHILS # 3.4 10^3/uL (1.5-8.5); NEUTROPHILS % 52.4 % (36.0-66.0); PLATELET COUNT, AUTOMATED 127 10^3/uL (150-450); WHITE BLOOD COUNT 6.4 10^3/uL (4.0-10.0)
[2022-06-15 10:32] LABS: INR 1.21; PROTHROMBIN TIME 15.5 SECONDS (12.5-14.5)
[2022-06-15 10:59] LABS: ALBUMIN 3.7 GM/DL (3.2-5.2); ALT/SGPT 74 U/L (12-78); BLOOD UREA NITROGEN 6 MG/DL (7-18); CALCIUM LEVEL 9.2 MG/DL (8.5-10.1); CARBON DIOXIDE LEVEL 29 MEQ/L (21-32); CHLORIDE LEVEL 101 MEQ/L (98-107); CREATININE FOR GFR 0.61 MG/DL (0.70-1.30); GLOMERULAR FILTRATION RATE > 60.0 (>60); GLUCOSE, FASTING 108 MG/DL (70-100); IRON (FE) 160 UG/DL (65-175); PERCENT SATURATION 40.1 % (19.7-50.0); POTASSIUM SERUM 3.9 MEQ/L (3.5-5.1); SODIUM LEVEL 137 MEQ/L (136-145); TOTAL IRON BINDING CAPACITY 399 UG/DL (250-450)
[2022-06-17 09:08] LABS: HEPATITIS B SURFACE ANTIGEN NEGATIVE (NEGATIVE)
[2022-06-17 09:28] LABS: HEPATITIS B CORE ANTIBODY IGM NEGATIVE (NEGATIVE); HEPATITIS C VIRUS ABY INDEX < 0.0 INDEX (<0.8)
== END ==
LOC: M LAB 09:00
PROVIDERS: ATTEND Internal Medicine Gastroenterology
DX: K74.60 Unspecified cirrhosis of liver (principal)

== ENCOUNTER 2022-08-22 08:04 | Emergency (ER) | payer OTHER ==
[~2022-08-22] VITALS: Ht 170.2 cm; Wt 64.9 kg
[~2022-08-22 08:04] MED LIST changes: -PAXI10TA12 PO; +PAXI10TA13 PO
[2022-08-22] MEDS ORDERED: OXAZEPAM 15MG CAP PO ONE (08:25)
[2022-08-22 08:58] LABS: BASO # 0.1 10^3/uL (0.0-0.2); BASO % 1.3 % (0.0-1.0); EOS # 0.1 10^3/uL (0.0-0.5); EOS % 1.2 % (0.0-3.0); HEMATOCRIT 43.1 % (42.0-52.0); HEMOGLOBIN 14.7 g/dl (13.5-17.5); LYMPH # 1.5 10^3/uL (1.5-5.0); LYMPH % 25.5 % (24.0-44.0); MEAN CORPUSCULAR HEMOGLOBIN 32.2 pg (27.0-33.0); MEAN CORPUSCULAR HGB CONC 34.1 g/dl (32.0-36.5); MEAN CORPUSCULAR VOLUME 94.5 fl (80.0-96.0); MONO # 1.1 10^3/uL (0.0-0.8); MONO % 17.9 % (2.0-8.0); NEUTROPHILS # 3.3 10^3/uL (1.5-8.5); NEUTROPHILS % 53.8 % (36.0-66.0); PLATELET COUNT, AUTOMATED 112 10^3/uL (150-450); RED BLOOD COUNT 4.56 10^6/uL (4.30-6.10); WHITE BLOOD COUNT 6.1 10^3/uL (4.0-10.0)
[2022-08-22] MEDS ORDERED: NS 1,000 ML IV ONE (09:10)
[2022-08-22 09:15] LABS: INR 1.13; PROTHROMBIN TIME 14.7 SECONDS (12.5-14.5)
[2022-08-22 09:17] LABS: LIPASE 131 U/L (12-53)
[2022-08-22 09:18] LABS: BILIRUBIN,DIRECT 0.5 MG/DL (<0.4)
[2022-08-22 09:19] LABS: ALKALINE PHOSPHATASE 100 U/L (46-116); ALT/SGPT 79 U/L (7.0-40); AST/SGOT 153 U/L (<34); BILIRUBIN,TOTAL 1.2 MG/DL (0.3-1.2); BLOOD UREA NITROGEN 6 MG/DL (9-23); CALCIUM LEVEL 8.8 MG/DL (8.5-10.1); CARBON DIOXIDE LEVEL 26 MMOL/L (20-31); CHLORIDE LEVEL 100 MMOL/L (98-107); CREATININE FOR GFR 0.48 MG/DL (0.70-1.30); GLOMERULAR FILTRATION RATE > 60.0 (>60); GLUCOSE, FASTING 104 MG/DL (60-100); POTASSIUM SERUM 3.9 MMOL/L (3.5-5.1); SODIUM LEVEL 136 MMOL/L (136-145); TOTAL PROTEIN 7.9 G/DL (5.7-8.2)
[2022-08-22 10:51] VITALS: BP 140/85
[2022-08-22] MEDS ORDERED: CHLO25CA PO ×3 (11:12→19:39)
[2022-08-22] MEDS ORDERED: NALT50TA4 PO (11:44)
== END 2022-08-22 12:04 | disposition home or self-care (01) ==
LOC: M ED 08:04
DX: K85.90 Acute pancreatitis without necrosis or infection, unspecified (principal); F10.130 Alcohol abuse with withdrawal, uncomplicated; Z79.899 Other long term (current) drug therapy; Z88.0 Allergy status to penicillin; Z88.5 Allergy status to narcotic agent; Z88.8 Allergy status to other drugs, medicaments and biological substances

== ENCOUNTER → 2022-08-26 | Outpatient (CLI) | payer OTHER ==
[~2022-08-26] MED LIST changes: +CHLO25CA PO
== END ==
LOC: M LABSMTC 09:15
PROVIDERS: ATTEND Anesthesiology
DX: Z01.812 Encounter for preprocedural laboratory examination (principal); Z11.52 Encounter for screening for COVID-19

== ENCOUNTER 2022-08-30 08:37 | Day surgery (SDC) | payer OTHER ==
[~2022-08-30] VITALS: Ht 170.2 cm; Wt 64.1 kg
[~2022-08-30 08:37] MED LIST changes: +LIDOCAINE 2% 100MG/5ML SDV (FOR ANES.) As Ordered ONE; +NS 1,000 ML IV ONE; +propofoL 200 MG/20 ML VIAL As Ordered ONE
[2022-08-30] MEDS ORDERED: fentaNYL 100 MCG/2 ML INJECTION As Ordered ONE (09:36)
[2022-08-30] MEDS ORDERED: GLUCAGON INJ 1MG VIAL As Ordered ONE (09:54)
[2022-08-30 10:25] VITALS: BP 133/81
== END 2022-08-30 10:32 | disposition home or self-care (01) ==
LOC: M OPP 08:37
PROVIDERS: ATTEND Internal Medicine Gastroenterology
DX: K62.1 Rectal polyp (principal); K63.5 Polyp of colon; K64.8 Other hemorrhoids; Z13.810 Encounter for screening for upper gastrointestinal disorder; Z79.899 Other long term (current) drug therapy; Z88.0 Allergy status to penicillin; Z88.1 Allergy status to other antibiotic agents; Z88.5 Allergy status to narcotic agent; Z88.6 Allergy status to analgesic agent; K74.60 Unspecified cirrhosis of liver; K85.90 Acute pancreatitis without necrosis or infection, unspecified; F41.9 Anxiety disorder, unspecified
CPT/HCPCS: 43235; 45385; 88305; J1610

== ENCOUNTER 2022-12-18 08:02 | Emergency (ER) | payer OTHER ==
[~2022-12-18] VITALS: Ht 170.2 cm; Wt 61.0 kg
[~2022-12-18 08:02] MED LIST changes: -LIDOCAINE 2% 100MG/5ML SDV (FOR ANES.) As Ordered ONE; -NS 1,000 ML IV ONE; -propofoL 200 MG/20 ML VIAL As Ordered ONE
[2022-12-18] MEDS ORDERED: LORazepam 2 MG/ML 1ML VIAL IV STA (08:22)
[2022-12-18] MEDS ORDERED: NS 1,000 ML IV ONE (08:25)
[2022-12-18] MEDS ORDERED: THIAMINE 100 MG TAB PO ONE (08:25)
[2022-12-18 08:49] LABS: BASO # 0.1 10^3/uL (0.0-0.2); EOS # 0.1 10^3/uL (0.0-0.5); EOS % 1.3 % (0.0-3.0); HEMATOCRIT 38.7 % (42.0-52.0); HEMOGLOBIN 13.5 g/dl (13.5-17.5); LYMPH # 1.5 10^3/uL (1.5-5.0); LYMPH % 27.9 % (24.0-44.0); MEAN CORPUSCULAR HEMOGLOBIN 33.1 pg (27.0-33.0); MEAN CORPUSCULAR HGB CONC 34.9 g/dl (32.0-36.5); MEAN CORPUSCULAR VOLUME 94.9 fl (80.0-96.0); MONO # 0.8 10^3/uL (0.0-0.8); MONO % 14.4 % (2.0-8.0); NEUTROPHILS # 2.9 10^3/uL (1.5-8.5); NEUTROPHILS % 54.2 % (36.0-66.0); RED BLOOD COUNT 4.08 10^6/uL (4.30-6.10); WHITE BLOOD COUNT 5.4 10^3/uL (4.0-10.0)
[2022-12-18 08:58] LABS: INR 1.24; PROTHROMBIN TIME 15.9 SECONDS (12.5-14.5)
[2022-12-18 08:59] LABS: PARTIAL THROMBOPLASTIN TIME 37.9 SECONDS (24.8-34.2)
[2022-12-18] MEDS ORDERED: FOLIC ACID 1MG TAB PO SCH (09:00)
[2022-12-18] MEDS ORDERED: MULTIVITAMINS/MINERALS THERAP 1 TAB PO SCH (09:00)
[2022-12-18 09:04] LABS: PLATELET COUNT, AUTOMATED 66 10^3/uL (150-450)
[2022-12-18 09:27] LABS: LIPASE 120 U/L (12-53)
[2022-12-18 09:29] LABS: ALBUMIN 3.7 G/DL (3.2-5.2); ALKALINE PHOSPHATASE 94 U/L (46-116); ALT/SGPT 85 U/L (7.0-40); AST/SGOT 156 U/L (<34); BILIRUBIN,DIRECT 0.7 MG/DL (<0.4); BILIRUBIN,TOTAL 1.6 MG/DL (0.3-1.2); BLOOD UREA NITROGEN 6 MG/DL (9-23); CALCIUM LEVEL 8.1 MG/DL (8.5-10.1); CARBON DIOXIDE LEVEL 27 MMOL/L (20-31); CHLORIDE LEVEL 105 MMOL/L (98-107); CREATININE FOR GFR 0.53 MG/DL (0.70-1.30); GLOMERULAR FILTRATION RATE > 60.0 (>60); GLUCOSE, FASTING 111 MG/DL (60-100); POTASSIUM SERUM 3.5 MMOL/L (3.5-5.1); SODIUM LEVEL 141 MMOL/L (136-145); TOTAL PROTEIN 7.2 G/DL (5.7-8.2)
[2022-12-18] MEDS ORDERED: LORazepam 2 MG TAB PO PRN (11:45)
[2022-12-18] MEDS ORDERED: OXAZEPAM 15MG CAP PO ONE (12:25)
[2022-12-18] MEDS ORDERED: CHLO25CA PO (12:38)
[2022-12-18 13:16] VITALS: BP 146/90
[2022-12-18] MEDS ORDERED: THIAMINE 100 MG TAB PO SCH (21:00)
[2022-12-19] MEDS ORDERED: VITMTA PO (00:21)
== END 2022-12-18 13:27 | disposition home or self-care (01) ==
LOC: M ED 08:02
DX: F10.239 Alcohol dependence with withdrawal, unspecified (principal)
CPT/HCPCS: 70450; 80048; 80076; 83690; 85025; 85049; 85055; 85610; 85730; 93005; 93041; 96374; 99285; J2060

== ENCOUNTER 2022-12-18 22:06 | Inpatient (IN) | payer OTHER ==
[~2022-12-18] VITALS: Ht 175.3 cm; Wt 58.6 kg
[2022-12-18] MEDS ORDERED: LORazepam 2 MG/ML 1ML VIAL IV STA ×2 (22:14→23:31)
[2022-12-18] MEDS ORDERED: MULTIVITAMIN -ADULT INJECTION 10 ML, THIAMINE INJection 100 MG, FOLIC ACID 1 MG in NS 1... IV ONE (22:15)
[2022-12-18] MEDS ORDERED: LORazepam 2 MG TAB PO PRN (22:15)
[2022-12-18 22:48] LABS: BASO # 0.1 10^3/uL (0.0-0.2); BASO % 1.3 % (0.0-1.0); EOS % 0.3 % (0.0-3.0); HEMATOCRIT 38.6 % (42.0-52.0); HEMOGLOBIN 13.4 g/dl (13.5-17.5); LYMPH # 0.9 10^3/uL (1.5-5.0); LYMPH % 14.9 % (24.0-44.0); MEAN CORPUSCULAR HEMOGLOBIN 32.9 pg (27.0-33.0); MEAN CORPUSCULAR HGB CONC 34.7 g/dl (32.0-36.5); MEAN CORPUSCULAR VOLUME 94.8 fl (80.0-96.0); MONO # 0.9 10^3/uL (0.0-0.8); MONO % 14.6 % (2.0-8.0); NEUTROPHILS # 4.3 10^3/uL (1.5-8.5); NEUTROPHILS % 68.6 % (36.0-66.0); RED BLOOD COUNT 4.07 10^6/uL (4.30-6.10); WHITE BLOOD COUNT 6.3 10^3/uL (4.0-10.0)
[2022-12-18 22:49] LABS: PLATELET COUNT, AUTOMATED 56 10^3/uL (150-450)
[2022-12-18 23:20] LABS: ETHYL ALCOHOL (ETHANOL) 0.004 % (0.000-0.010)
[2022-12-18 23:21] LABS: RSV AMPLIFICATION NEGATIVE (NEGATIVE)
[2022-12-18 23:22] LABS: ALBUMIN 3.8 G/DL (3.2-5.2); ALKALINE PHOSPHATASE 92 U/L (46-116); ALT/SGPT 77 U/L (7.0-40); AST/SGOT 147 U/L (<34); BILIRUBIN,DIRECT 0.9 MG/DL (<0.4); BILIRUBIN,TOTAL 2.1 MG/DL (0.3-1.2); BLOOD UREA NITROGEN 7 MG/DL (9-23); CALCIUM LEVEL 8.4 MG/DL (8.5-10.1); CARBON DIOXIDE LEVEL 28 MMOL/L (20-31); CHLORIDE LEVEL 101 MMOL/L (98-107); CREATININE FOR GFR 0.52 MG/DL (0.70-1.30); GLOMERULAR FILTRATION RATE > 60.0 (>60); GLUCOSE, FASTING 109 MG/DL (60-100); POTASSIUM SERUM 3.5 MMOL/L (3.5-5.1); SALICYLATE LEVEL < 3.0 MG/DL (<30); SODIUM LEVEL 138 MMOL/L (136-145); TOTAL PROTEIN 7.5 G/DL (5.7-8.2)
[2022-12-18 23:24] LABS: THYROID STIMULATING HORMONE 3.667 uIU/ML (0.55-4.78)
[2022-12-18 23:25] LABS: ACETAMINOPHEN LEVEL < 2.0 UG/ML (10.0-20.0); CPK CREATINE PHOSPHOKINASE 283 U/L (46-171)
[2022-12-19 00:06] LABS: LIPASE 91 U/L (12-53)
[2022-12-19] MEDS ORDERED: VITMTA PO (00:21)
[2022-12-19] MEDS ORDERED: HOME MED LIST COMPLETE! XX SCH (00:25)
[2022-12-19] MEDS ORDERED: LORazepam 2 MG TAB PO PRN (00:45)
[2022-12-19 02:12] LABS: INR 1.3; PROTHROMBIN TIME 16.4 SECONDS (12.5-14.5)
[2022-12-19 04:28] LABS: AMPHETAMINES LEVEL URINE NEGATIVE (NEGATIVE); BARBITURATES URINE NEGATIVE (NEGATIVE); CANNABINOIDS URINE NEGATIVE (NEGATIVE); COCAINE METABOLITE URINE NEGATIVE (NEGATIVE); METHADONE URINE NEGATIVE (NEGATIVE); OPIATES URINE NEGATIVE (NEGATIVE); PHENCYCLIDINE URINE NEGATIVE (NEGATIVE)
[2022-12-19 04:30] LABS: BENZODIAZEPINES URINE POSITIVE (NEGATIVE)
[2022-12-19] MEDS ORDERED: cloNIDine 0.1MG TABLET PO ONE (05:40)
[2022-12-19 06:21] LABS: BASO # 0.1 10^3/uL (0.0-0.2); BASO % 1.1 % (0.0-1.0); EOS % 0.7 % (0.0-3.0); HEMATOCRIT 38.2 % (42.0-52.0); HEMOGLOBIN 13.2 g/dl (13.5-17.5); LYMPH # 1.3 10^3/uL (1.5-5.0); LYMPH % 20.5 % (24.0-44.0); MEAN CORPUSCULAR HEMOGLOBIN 32.9 pg (27.0-33.0); MEAN CORPUSCULAR HGB CONC 34.6 g/dl (32.0-36.5); MEAN CORPUSCULAR VOLUME 95.3 fl (80.0-96.0); MONO % 15.9 % (2.0-8.0); NEUTROPHILS # 3.7 10^3/uL (1.5-8.5); NEUTROPHILS % 61.3 % (36.0-66.0); RED BLOOD COUNT 4.01 10^6/uL (4.30-6.10); WHITE BLOOD COUNT 6.1 10^3/uL (4.0-10.0)
[2022-12-19 06:24] LABS: PLATELET COUNT, AUTOMATED 56 10^3/uL (150-450)
[2022-12-19] MEDS: OXAZEPAM 15MG CAP PO SCH ×2 (06:32→14:09)
[2022-12-19 06:52] LABS: ALBUMIN 3.6 G/DL (3.2-5.2); ALKALINE PHOSPHATASE 90 U/L (46-116); ALT/SGPT 65 U/L (7.0-40); AST/SGOT 116 U/L (<34); BILIRUBIN,TOTAL 2.6 MG/DL (0.3-1.2); BLOOD UREA NITROGEN 5 MG/DL (9-23); CALCIUM LEVEL 8.4 MG/DL (8.5-10.1); CARBON DIOXIDE LEVEL 28 MMOL/L (20-31); CHLORIDE LEVEL 100 MMOL/L (98-107); CREATININE FOR GFR 0.45 MG/DL (0.70-1.30); GLOMERULAR FILTRATION RATE > 60.0 (>60); GLUCOSE, FASTING 111 MG/DL (60-100); POTASSIUM SERUM 3.2 MMOL/L (3.5-5.1); SODIUM LEVEL 136 MMOL/L (136-145); TOTAL PROTEIN 7.2 G/DL (5.7-8.2)
[2022-12-19] MEDS ORDERED: THIAMINE 100 MG TAB PO SCH (09:00)
[2022-12-19] MEDS ORDERED: MULTIVITAMINS/MINERALS THERAP 1 TAB PO SCH (09:00)
[2022-12-19] MEDS ORDERED: FOLIC ACID 1MG TAB PO SCH (09:00)
[2022-12-19] MEDS ORDERED: busPIRone 10 MG TAB PO SCH (09:00)
[2022-12-19] MEDS ORDERED: FLUoxetine 20MG CAP PO SCH (09:00)
[2022-12-19] MEDS ORDERED: LR 1,000 ML IV SCH (09:45)
[2022-12-19] MEDS ORDERED: POTASSIUM CHLORIDE 10MEQ SR TABLET PO ONE (09:45)
[2022-12-19 12:30] VITALS: BP 127/76
[2022-12-19] MEDS ORDERED: LORazepam 1 MG TAB PO PRN (12:34)
[2022-12-19 16:00] VITALS: BP 134/81
[2022-12-19 19:37] VITALS: BP 132/79
== END 2022-12-19 21:08 | disposition left against medical advice (07) | DRG 894 ==
LOC: M ED 22:06 → M ED INP 12-19 00:44 → M MS4PR 12-19 12:20
PROVIDERS: ADMIT Internal Medicine; ATTEND Internal Medicine
DX: F10.231 Alcohol dependence with withdrawal delirium (principal); F32.A Depression, unspecified; I10 Essential (primary) hypertension; K76.0 Fatty (change of) liver, not elsewhere classified; D69.6 Thrombocytopenia, unspecified; K70.30 Alcoholic cirrhosis of liver without ascites; E87.6 Hypokalemia; G93.0 Cerebral cysts; R00.0 Tachycardia, unspecified; B35.1 Tinea unguium; E80.6 Other disorders of bilirubin metabolism; Z79.899 Other long term (current) drug therapy; Z88.1 Allergy status to other antibiotic agents; Z88.5 Allergy status to narcotic agent; Z88.6 Allergy status to analgesic agent; Z20.822 Contact with and (suspected) exposure to COVID-19

== ENCOUNTER 2022-12-19 22:30 | Inpatient (IN) | payer OTHER ==
[~2022-12-19] VITALS: Ht 175.3 cm; Wt 57.1 kg
[2022-12-19] MEDS ORDERED: LORazepam 2 MG TAB PO PRN (22:55)
[2022-12-19] MEDS ORDERED: THIAMINE 100 MG TAB PO SCH (23:00)
[2022-12-19] MEDS ORDERED: KCL 10MEQ IN D5/0.45NS 1000ML 1,000 ML IV SCH (23:00)
[2022-12-19] MEDS ORDERED: OXAZEPAM 15MG CAP PO ONE (23:00)
[2022-12-19 23:34] LABS: BASO # 0.1 10^3/uL (0.0-0.2); BASO % 1.3 % (0.0-1.0); EOS # 0.1 10^3/uL (0.0-0.5); EOS % 0.9 % (0.0-3.0); HEMATOCRIT 39.5 % (42.0-52.0); LYMPH % 14.3 % (24.0-44.0); MEAN CORPUSCULAR HEMOGLOBIN 33.4 pg (27.0-33.0); MEAN CORPUSCULAR HGB CONC 35.4 g/dl (32.0-36.5); MEAN CORPUSCULAR VOLUME 94.3 fl (80.0-96.0); MONO # 0.8 10^3/uL (0.0-0.8); MONO % 11.8 % (2.0-8.0); NEUTROPHILS % 71.4 % (36.0-66.0); RED BLOOD COUNT 4.19 10^6/uL (4.30-6.10)
[2022-12-19 23:43] LABS: PLATELET COUNT, AUTOMATED 62 10^3/uL (150-450)
[2022-12-19 23:58] LABS: ALBUMIN 3.8 G/DL (3.2-5.2); ALKALINE PHOSPHATASE 100 U/L (46-116); ALT/SGPT 65 U/L (7.0-40); AST/SGOT 107 U/L (<34); BILIRUBIN,DIRECT 1.1 MG/DL (<0.4); BILIRUBIN,TOTAL 2.4 MG/DL (0.3-1.2); BLOOD UREA NITROGEN 7 MG/DL (9-23); CALCIUM LEVEL 8.8 MG/DL (8.5-10.1); CARBON DIOXIDE LEVEL 27 MMOL/L (20-31); CHLORIDE LEVEL 104 MMOL/L (98-107); GLOMERULAR FILTRATION RATE > 60.0 (>60); GLUCOSE, FASTING 120 MG/DL (60-100); MAGNESIUM LEVEL 1.7 MG/DL (1.8-2.4); POTASSIUM SERUM 3.4 MMOL/L (3.5-5.1); SODIUM LEVEL 138 MMOL/L (136-145); TOTAL PROTEIN 7.2 G/DL (5.7-8.2)
[2022-12-20] VITALS (28 sets, daily range): BP systolic 103–159; BP diastolic 59–96
[2022-12-20 00:07] LABS: RSV AMPLIFICATION NEGATIVE (NEGATIVE)
[2022-12-20 00:48] LABS: OSMOLALITY SERUM 282 MOSM/KG (275-295)
[2022-12-20] MEDS: LORazepam 2 MG TAB PO PRN ×3 (01:33→20:18)
[2022-12-20] MEDS ORDERED: LORazepam 2 MG/ML 1ML VIAL IV PRN ×3 (01:45→04:00)
[2022-12-20] MEDS ORDERED: POTASSIUM CHLORIDE 10MEQ SR TABLET PO ONE (01:45)
[2022-12-20] MEDS ORDERED: LORazepam 2 MG/ML 1ML VIAL IV STA ×2 (01:57→03:49)
[2022-12-20] MEDS ORDERED: HOME MED LIST COMPLETE! XX SCH (02:30)
[2022-12-20] MEDS: dexmedeTOMidine 200 MCG in IV 1 EA IV SCH ×2 (03:00→06:52)
[2022-12-20] MEDS: MAG SULF 1GM/100ML (MAG RUN) 1 GM in IV 1 EA IV SCH ×2 (03:26→04:53)
[2022-12-20] MEDS: NS 1,000 ML IV SCH ×2 (05:53→15:00)
[2022-12-20] MEDS ORDERED: OXAZEPAM 15MG CAP PO SCH (06:00)
[2022-12-20] MEDS: OXAZEPAM 10MG CAP PO SCH ×3 (07:40→18:36)
[2022-12-20] MEDS ORDERED: HALOPERIDOL 5MG/ML 1ML VIAL IV PRN (07:45)
[2022-12-20 08:06] LABS: HEMOGLOBIN 13.6 g/dl (13.5-17.5); MEAN CORPUSCULAR HEMOGLOBIN 32.8 pg (27.0-33.0); MEAN CORPUSCULAR VOLUME 96.4 fl (80.0-96.0); RED BLOOD COUNT 4.15 10^6/uL (4.30-6.10); WHITE BLOOD COUNT 5.1 10^3/uL (4.0-10.0)
[2022-12-20 08:24] LABS: ALBUMIN 3.3 G/DL (3.2-5.2); ALKALINE PHOSPHATASE 96 U/L (46-116); ALT/SGPT 62 U/L (7.0-40); AST/SGOT 90 U/L (<34); BILIRUBIN,TOTAL 2.2 MG/DL (0.3-1.2); BLOOD UREA NITROGEN 6 MG/DL (9-23); CALCIUM LEVEL 7.9 MG/DL (8.5-10.1); CARBON DIOXIDE LEVEL 27 MMOL/L (20-31); CHLORIDE LEVEL 106 MMOL/L (98-107); CREATININE FOR GFR 0.43 MG/DL (0.70-1.30); GLOMERULAR FILTRATION RATE > 60.0 (>60); GLUCOSE, FASTING 208 MG/DL (60-100); POTASSIUM SERUM 3.5 MMOL/L (3.5-5.1); SODIUM LEVEL 139 MMOL/L (136-145); TOTAL PROTEIN 6.8 G/DL (5.7-8.2)
[2022-12-20 08:24] LABS: PLATELET COUNT, AUTOMATED 55 10^3/uL (150-450)
[2022-12-20] MEDS ORDERED: MULTIVITAMINS/MINERALS THERAP 1 TAB PO SCH (09:00)
[2022-12-20] MEDS ORDERED: FOLIC ACID 1MG TAB PO SCH (09:00)
[2022-12-20] MEDS ORDERED: LACTULOSE 20GM/30ML SYRUP UDC PO ONE (10:30)
[2022-12-20] MEDS ORDERED: LACTULOSE 20GM/30ML SYRUP UDC PO SCH (12:00)
[2022-12-20] MEDS ORDERED: LACTULOSE 20GM/30ML SYRUP UDC PR SCH (12:00)
[2022-12-20] MEDS: THIAMINE 100 MG TAB PO SCH ×2 (13:09→20:18)
[2022-12-20] MEDS: FOLIC ACID 1MG TAB PO SCH (13:09)
[2022-12-20] MEDS: MULTIVITAMINS/MINERALS THERAP 1 TAB PO SCH (13:09)
[2022-12-21] VITALS (9 sets, daily range): BP systolic 118–149; BP diastolic 63–86
[2022-12-21] MEDS: NS 1,000 ML IV SCH (00:10)
[2022-12-21] MEDS: OXAZEPAM 10MG CAP PO SCH ×5 (00:12→23:34)
[2022-12-21 06:40] LABS: HEMATOCRIT 38.9 % (42.0-52.0); MEAN CORPUSCULAR HEMOGLOBIN 32.4 pg (27.0-33.0); MEAN CORPUSCULAR HGB CONC 33.4 g/dl (32.0-36.5); RED BLOOD COUNT 4.01 10^6/uL (4.30-6.10); WHITE BLOOD COUNT 7.2 10^3/uL (4.0-10.0)
[2022-12-21 06:42] LABS: PLATELET COUNT, AUTOMATED 73 10^3/uL (150-450)
[2022-12-21] MEDS: dexmedeTOMidine 200 MCG in IV 1 EA IV SCH (06:51)
[2022-12-21 07:12] LABS: ALBUMIN 3.2 G/DL (3.2-5.2); ALKALINE PHOSPHATASE 94 U/L (46-116); ALT/SGPT 56 U/L (7.0-40); AST/SGOT 81 U/L (<34); BILIRUBIN,TOTAL 2.5 MG/DL (0.3-1.2); BLOOD UREA NITROGEN 7 MG/DL (9-23); CALCIUM LEVEL 7.9 MG/DL (8.5-10.1); CARBON DIOXIDE LEVEL 23 MMOL/L (20-31); CHLORIDE LEVEL 106 MMOL/L (98-107); CREATININE FOR GFR 0.55 MG/DL (0.70-1.30); GLOMERULAR FILTRATION RATE > 60.0 (>60); GLUCOSE, FASTING 99 MG/DL (60-100); POTASSIUM SERUM 3.5 MMOL/L (3.5-5.1); SODIUM LEVEL 136 MMOL/L (136-145); TOTAL PROTEIN 6.4 G/DL (5.7-8.2)
[2022-12-21] MEDS: MULTIVITAMINS/MINERALS THERAP 1 TAB PO SCH (08:59)
[2022-12-21] MEDS: FOLIC ACID 1MG TAB PO SCH (08:59)
[2022-12-21] MEDS: THIAMINE 100 MG TAB PO SCH ×2 (08:59→22:34)
[2022-12-21] MEDS ORDERED: PANTOPRAZOLE 40MG VIAL IV SCH (09:00)
[2022-12-21] MEDS: LACTULOSE 20GM/30ML SYRUP UDC PO SCH (09:32)
[2022-12-21] MEDS: busPIRone 10 MG TAB PO SCH (15:49)
[2022-12-21] MEDS: GABAPENTIN 300 MG CAP PO SCH ×2 (15:50→22:35)
[2022-12-21] MEDS: NALTREXONE 50 MG TAB PO SCH (15:50)
[2022-12-21] MEDS: FLUoxetine 20MG CAP PO SCH (15:50)
[2022-12-21] MEDS ORDERED: PROHANCE 279.3MG/ML 15ML VIAL As Ordered ONE (20:20)
[2022-12-22 04:14] VITALS: BP 146/88
[2022-12-22 04:33] LABS: HEMATOCRIT 39.7 % (42.0-52.0); HEMOGLOBIN 13.7 g/dl (13.5-17.5); MEAN CORPUSCULAR HEMOGLOBIN 32.9 pg (27.0-33.0); MEAN CORPUSCULAR HGB CONC 34.5 g/dl (32.0-36.5); MEAN CORPUSCULAR VOLUME 95.2 fl (80.0-96.0); RED BLOOD COUNT 4.17 10^6/uL (4.30-6.10); WHITE BLOOD COUNT 8.1 10^3/uL (4.0-10.0)
[2022-12-22 04:40] LABS: PLATELET COUNT, AUTOMATED 99 10^3/uL (150-450)
[2022-12-22] MEDS: OXAZEPAM 10MG CAP PO SCH (05:40)
[2022-12-22 07:10] LABS: ALBUMIN 3.5 G/DL (3.2-5.2); ALKALINE PHOSPHATASE 97 U/L (46-116); ALT/SGPT 58 U/L (7.0-40); AST/SGOT 70 U/L (<34); BILIRUBIN,TOTAL 1.6 MG/DL (0.3-1.2); BLOOD UREA NITROGEN 7 MG/DL (9-23); CALCIUM LEVEL 8.9 MG/DL (8.5-10.1); CARBON DIOXIDE LEVEL 27 MMOL/L (20-31); CHLORIDE LEVEL 105 MMOL/L (98-107); CREATININE FOR GFR 0.57 MG/DL (0.70-1.30); GLOMERULAR FILTRATION RATE > 60.0 (>60); GLUCOSE, FASTING 130 MG/DL (60-100); POTASSIUM SERUM 3.4 MMOL/L (3.5-5.1); SODIUM LEVEL 140 MMOL/L (136-145); TOTAL PROTEIN 6.7 G/DL (5.7-8.2)
[2022-12-22] MEDS: GABAPENTIN 300 MG CAP PO SCH ×3 (08:09→20:04)
[2022-12-22] MEDS: FOLIC ACID 1MG TAB PO SCH (08:09)
[2022-12-22] MEDS: LACTULOSE 20GM/30ML SYRUP UDC PO SCH (08:10)
[2022-12-22] MEDS: NALTREXONE 50 MG TAB PO SCH (08:10)
[2022-12-22] MEDS: busPIRone 10 MG TAB PO SCH (08:10)
[2022-12-22] MEDS: FLUoxetine 20MG CAP PO SCH (08:10)
[2022-12-22] MEDS: MULTIVITAMINS/MINERALS THERAP 1 TAB PO SCH (08:10)
[2022-12-22] MEDS: THIAMINE 100 MG TAB PO SCH ×2 (08:10→20:05)
[2022-12-22 08:16] VITALS: BP 108/72
[2022-12-22] MEDS ORDERED: GABA-282 PO (10:30)
[2022-12-22] MEDS ORDERED: NALT50TA4 PO (10:30)
[2022-12-22] MEDS ORDERED: LACT20EL PO (10:30)
[2022-12-22] MEDS ORDERED: TUBERCULIN PPD 5 UNITS/0.1 ML ID ONE (13:00)
[2022-12-22 20:00] VITALS: BP 158/84
[2022-12-23 05:18] LABS: HEMATOCRIT 40.5 % (42.0-52.0); HEMOGLOBIN 13.7 g/dl (13.5-17.5); MEAN CORPUSCULAR HEMOGLOBIN 32.5 pg (27.0-33.0); MEAN CORPUSCULAR HGB CONC 33.8 g/dl (32.0-36.5); MEAN CORPUSCULAR VOLUME 96.2 fl (80.0-96.0); PLATELET COUNT, AUTOMATED 127 10^3/uL (150-450); RED BLOOD COUNT 4.21 10^6/uL (4.30-6.10); WHITE BLOOD COUNT 9.6 10^3/uL (4.0-10.0)
[2022-12-23 05:40] LABS: ALBUMIN 3.4 G/DL (3.2-5.2); ALKALINE PHOSPHATASE 90 U/L (46-116); ALT/SGPT 58 U/L (7.0-40); AST/SGOT 66 U/L (<34); BILIRUBIN,TOTAL 1.7 MG/DL (0.3-1.2); BLOOD UREA NITROGEN 8 MG/DL (9-23); CALCIUM LEVEL 8.8 MG/DL (8.5-10.1); CARBON DIOXIDE LEVEL 28 MMOL/L (20-31); CHLORIDE LEVEL 102 MMOL/L (98-107); GLOMERULAR FILTRATION RATE > 60.0 (>60); GLUCOSE, FASTING 102 MG/DL (60-100); POTASSIUM SERUM 3.2 MMOL/L (3.5-5.1); SODIUM LEVEL 139 MMOL/L (136-145); TOTAL PROTEIN 6.6 G/DL (5.7-8.2)
[2022-12-23 08:00] VITALS: BP 107/62
[2022-12-23] MEDS: FLUoxetine 20MG CAP PO SCH (09:00)
[2022-12-23] MEDS: NALTREXONE 50 MG TAB PO SCH (09:00)
[2022-12-23] MEDS: busPIRone 10 MG TAB PO SCH (09:00)
[2022-12-23] MEDS: GABAPENTIN 300 MG CAP PO SCH ×2 (09:00→16:40)
[2022-12-23] MEDS: LACTULOSE 20GM/30ML SYRUP UDC PO SCH (09:00)
[2022-12-23] MEDS ORDERED: FLUCONAZOLE 100 MG TAB PO SCH (09:00)
[2022-12-23] MEDS: FOLIC ACID 1MG TAB PO SCH (09:01)
[2022-12-23] MEDS: MULTIVITAMINS/MINERALS THERAP 1 TAB PO SCH (09:05)
[2022-12-23] MEDS ORDERED: POTASSIUM CHLORIDE 10MEQ SR TABLET PO ONE (11:00)
[2022-12-24] MEDS ORDERED: PPD DOCUMENTATION ENTRY MISC XX ONE (13:00)
[2022-12-25] MEDS ORDERED: GABAPENTIN 300 MG CAP PO SCH (09:00)
== END 2022-12-23 18:50 | disposition home or self-care (01) | DRG 897 ==
LOC: M ED 22:30 → M ED INP 23:22 → M ICU 12-20 02:57
PROVIDERS: ADMIT Internal Medicine; ATTEND Student in an Organized Health Care Education/Training Program
DX: F10.231 Alcohol dependence with withdrawal delirium (principal); E72.20 Disorder of urea cycle metabolism, unspecified; K76.6 Portal hypertension; K70.30 Alcoholic cirrhosis of liver without ascites; E78.5 Hyperlipidemia, unspecified; E87.6 Hypokalemia; E83.42 Hypomagnesemia; D69.6 Thrombocytopenia, unspecified; G93.0 Cerebral cysts; F32.A Depression, unspecified; K76.0 Fatty (change of) liver, not elsewhere classified; F42.9 Obsessive-compulsive disorder, unspecified; B35.1 Tinea unguium; I10 Essential (primary) hypertension; Z20.822 Contact with and (suspected) exposure to COVID-19; K76.82 Hepatic encephalopathy; Z79.899 Other long term (current) drug therapy; Z88.1 Allergy status to other antibiotic agents; Z88.6 Allergy status to analgesic agent; Z88.5 Allergy status to narcotic agent

== ENCOUNTER → 2023-02-15 | Outpatient (CLI) | payer OTHER ==
[~2023-02-15] MED LIST changes: +GABA-282 PO; +LACT20EL PO; +VIST50CA PO
[2023-02-15 09:09] LABS: ALBUMIN 2.9 G/DL (3.2-5.2); BILIRUBIN,DIRECT 0.3 MG/DL (<0.4); BILIRUBIN,TOTAL 0.8 MG/DL (0.3-1.2); TOTAL PROTEIN 6.8 G/DL (5.7-8.2)
== END ==
LOC: M LAB 08:13
PROVIDERS: ATTEND Internal Medicine Gastroenterology
DX: D37.6 Neoplasm of uncertain behavior of liver, gallbladder and bile ducts (principal); K70.30 Alcoholic cirrhosis of liver without ascites

== ENCOUNTER → 2023-02-15 | Outpatient (CLI) | payer OTHER ==
[2023-02-15 08:39] LABS: BASO # 0.1 10^3/uL (0.0-0.2); BASO % 1.3 % (0.0-1.0); EOS # 0.9 10^3/uL (0.0-0.5); EOS % 8.7 % (0.0-3.0); LYMPH # 2.9 10^3/uL (1.5-5.0); LYMPH % 26.8 % (24.0-44.0); MEAN CORPUSCULAR HEMOGLOBIN 32.4 pg (27.0-33.0); MEAN CORPUSCULAR HGB CONC 34.2 g/dl (32.0-36.5); MEAN CORPUSCULAR VOLUME 94.8 fl (80.0-96.0); MONO # 1.3 10^3/uL (0.0-0.8); MONO % 12.2 % (2.0-8.0); NEUTROPHILS # 5.4 10^3/uL (1.5-8.5); NEUTROPHILS % 50.6 % (36.0-66.0); PLATELET COUNT, AUTOMATED 228 10^3/uL (150-450); RED BLOOD COUNT 4.01 10^6/uL (4.30-6.10); WHITE BLOOD COUNT 10.6 10^3/uL (4.0-10.0)
[2023-02-15 09:11] LABS: ALKALINE PHOSPHATASE 99 U/L (46-116); ALT/SGPT 31 U/L (7.0-40); AST/SGOT 47 U/L (<34); BILIRUBIN,TOTAL 0.8 MG/DL (0.3-1.2); BLOOD UREA NITROGEN 5 MG/DL (9-23); CALCIUM LEVEL 8.7 MG/DL (8.5-10.1); CARBON DIOXIDE LEVEL 26 MMOL/L (20-31); CHLORIDE LEVEL 106 MMOL/L (98-107); CHOLESTEROL LEVEL 155 MG/DL (<200); CHOLESTEROL RISK RATIO 4.62 (<5); GLOMERULAR FILTRATION RATE > 60.0 (>60); GLUCOSE, FASTING 106 MG/DL (60-100); HDL CHOLESTEROL 33.5 MG/DL (>40); LDL CHOLESTEROL 88.9 MG/DL (<100); NON-HDL-C 121.5 MG/DL; POTASSIUM SERUM 4.2 MMOL/L (3.5-5.1); SODIUM LEVEL 137 MMOL/L (136-145); TOTAL PROTEIN 6.8 G/DL (5.7-8.2); TRIGLYCERIDES LEVEL 163 MG/DL (<150)
[2023-02-15 09:13] LABS: FREE T4 0.59 NG/DL (0.89-1.76); THYROID STIMULATING HORMONE 0.977 uIU/ML (0.55-4.78)
== END ==
LOC: M LAB 08:11
PROVIDERS: ATTEND Registered Nurse
DX: F10.20 Alcohol dependence, uncomplicated (principal); R94.5 Abnormal results of liver function studies

== ENCOUNTER → 2023-02-21 | Outpatient (REF) | payer OTHER | LOC: M LAB REF 11:34 | PROVIDERS: ATTEND Emergency Medicine | DX: R19.7 Diarrhea, unspecified (principal) ==

== ENCOUNTER → 2023-03-26 | Outpatient (CLI) | payer OTHER | LOC: M OUTALCOH 08:02 | PROVIDERS: ATTEND Psychiatry & Neurology Psychiatry | DX: F10.10 Alcohol abuse, uncomplicated (principal) ==

== ENCOUNTER → 2023-04-05 | Outpatient (CLI) | payer OTHER | LOC: M LAB 08:06 | PROVIDERS: ATTEND Registered Nurse | DX: F10.21 Alcohol dependence, in remission (principal) ==

== ENCOUNTER 2023-04-09 16:00 | Outpatient (RCR) | payer OTHER | END 2023-04-10 | LOC: M OUTALCOH 16:00 | PROVIDERS: ATTEND Psychiatry & Neurology Psychiatry | DX: F10.20 Alcohol dependence, uncomplicated (principal) ==

== ENCOUNTER 2023-05-07 16:00 | Outpatient (RCR) | payer MEDICAID, OTHER | END 2023-05-10 | LOC: M OUTALCOH 16:00 | PROVIDERS: ATTEND Psychiatry & Neurology Psychiatry | DX: F10.20 Alcohol dependence, uncomplicated (principal) ==

== ENCOUNTER 2023-06-06 15:00 | Outpatient (RCR) | payer OTHER | END 2023-06-10 | LOC: M OUTALCOH 15:00 | PROVIDERS: ATTEND Psychiatry & Neurology Psychiatry | DX: F10.20 Alcohol dependence, uncomplicated (principal) ==

== ENCOUNTER 2023-07-09 16:00 | Outpatient (RCR) | payer MEDICAID, OTHER | END 2023-07-10 | LOC: M OUTALCOH 16:00 | PROVIDERS: ATTEND Psychiatry & Neurology Psychiatry | DX: F10.20 Alcohol dependence, uncomplicated (principal) ==

== ENCOUNTER → 2023-07-11 | Outpatient (CLI) | payer OTHER | LOC: M PLAIMG 08:56 | PROVIDERS: ATTEND Internal Medicine Gastroenterology | DX: D37.6 Neoplasm of uncertain behavior of liver, gallbladder and bile ducts (principal); K70.30 Alcoholic cirrhosis of liver without ascites; K70.10 Alcoholic hepatitis without ascites ==

== ENCOUNTER 2023-08-08 16:00 | Outpatient (RCR) | payer MEDICAID ==
[~2023-08-08 16:00] MED LIST changes: +ACAM0.05 PO
== END 2023-08-10 ==
LOC: M OUTALCOH 16:00
PROVIDERS: ATTEND Psychiatry & Neurology Psychiatry
DX: F10.20 Alcohol dependence, uncomplicated (principal)

== ENCOUNTER 2023-08-15 17:04 | Inpatient (IN) | payer MEDICAID, OTHER ==
[~2023-08-15] VITALS: Ht 175.3 cm; Wt 68.1 kg
[~2023-08-15 17:04] MED LIST changes: +FOLIC ACID 1MG TAB PO SCH; +MULTIVITAMINS/MINERALS THERAP 1 TAB PO SCH; +THIAMINE 100 MG TAB PO SCH
[2023-08-15] MEDS ORDERED: OXAZEPAM 15MG CAP PO ONE (17:20)
[2023-08-15] MEDS ORDERED: NS 1,000 ML IV ONE (17:25)
[2023-08-15 17:39] LABS: BASO % 0.3 % (0.0-1.0); HEMATOCRIT 44.1 % (42.0-52.0); HEMOGLOBIN 15.2 g/dl (13.5-17.5); LYMPH # 2.1 10^3/uL (1.5-5.0); LYMPH % 17.5 % (24.0-44.0); MEAN CORPUSCULAR HEMOGLOBIN 30.8 pg (27.0-33.0); MEAN CORPUSCULAR HGB CONC 34.5 g/dl (32.0-36.5); MEAN CORPUSCULAR VOLUME 89.3 fl (80.0-96.0); MONO % 8.7 % (2.0-8.0); NEUTROPHILS # 8.6 10^3/uL (1.5-8.5); NEUTROPHILS % 73.2 % (36.0-66.0); PLATELET COUNT, AUTOMATED 196 10^3/uL (150-450); RED BLOOD COUNT 4.94 10^6/uL (4.30-6.10); WHITE BLOOD COUNT 11.8 10^3/uL (4.0-10.0)
[2023-08-15 18:06] LABS: AMPHETAMINES LEVEL URINE NEGATIVE (NEGATIVE); BARBITURATES URINE NEGATIVE (NEGATIVE); CANNABINOIDS URINE NEGATIVE (NEGATIVE); COCAINE METABOLITE URINE NEGATIVE (NEGATIVE); METHADONE URINE NEGATIVE (NEGATIVE); OPIATES URINE NEGATIVE (NEGATIVE); PHENCYCLIDINE URINE NEGATIVE (NEGATIVE)
[2023-08-15 18:07] LABS: BENZODIAZEPINES URINE NEGATIVE (NEGATIVE)
[2023-08-15 18:09] LABS: ETHYL ALCOHOL (ETHANOL) < 0.003 % (0.000-0.010)
[2023-08-15 18:11] LABS: ALKALINE PHOSPHATASE 105 U/L (46-116); ALT/SGPT 56 U/L (7.0-40); AST/SGOT 57 U/L (<34); BILIRUBIN,DIRECT 0.4 MG/DL (<0.4); BILIRUBIN,TOTAL 1.3 MG/DL (0.3-1.2); BLOOD UREA NITROGEN 11 MG/DL (9-23); CALCIUM LEVEL 9.1 MG/DL (8.5-10.1); CARBON DIOXIDE LEVEL 30 MMOL/L (20-31); CHLORIDE LEVEL 102 MMOL/L (98-107); CREATININE FOR GFR 0.48 MG/DL (0.70-1.30); GLOMERULAR FILTRATION RATE > 60.0 (>60); GLUCOSE, FASTING 116 MG/DL (60-100); POTASSIUM SERUM 3.8 MMOL/L (3.5-5.1); SALICYLATE LEVEL < 3.0 MG/DL (<30); SODIUM LEVEL 139 MMOL/L (136-145); TOTAL PROTEIN 7.8 G/DL (5.7-8.2)
[2023-08-15 18:12] LABS: THYROID STIMULATING HORMONE 1.737 uIU/ML (0.55-4.78)
[2023-08-15 18:13] LABS: CPK CREATINE PHOSPHOKINASE 257 U/L (46-171)
[2023-08-15 19:18] LABS: RSV AMPLIFICATION NEGATIVE (NEGATIVE)
[2023-08-15] MEDS ORDERED: MED REC IN PROGRESS XX SCH (19:30)
[2023-08-15] MEDS ORDERED: HYDR50CA2 PO (19:39)
[2023-08-15] MEDS ORDERED: ACAM0.05 PO (19:41)
[2023-08-15] MEDS ORDERED: MOM 30ML SUSPENSION UDC PO PRN (20:05)
[2023-08-15] MEDS ORDERED: MAALOX 30 ML SUSP *UDC PO PRN (20:05)
[2023-08-15] MEDS ORDERED: ACETAMINOPHEN TAB 650MG DOSE (2X325MG) PO PRN (20:05)
[2023-08-15] MEDS ORDERED: NALT50TA4 PO (20:59)
[2023-08-15] MEDS ORDERED: hydrOXYzine 50 MG TAB PO SCH (21:00)
[2023-08-15] MEDS ORDERED: NALTREXONE 50 MG TAB PO SCH (21:00)
[2023-08-15] MEDS ORDERED: HOME MED LIST COMPLETE! XX SCH (21:05)
[2023-08-15 22:05] VITALS: BP 134/79; TEMP 98.3; O2SAT 100
[2023-08-15] MEDS: ACAMPROSATE CALCIUM 333MG TABLET (CAMPRAL) PO SCH (22:23)
[2023-08-15] MEDS: OXAZEPAM 15MG CAP PO SCH (22:23)
[2023-08-16] VITALS: BP 123/63; TEMP 97.5; O2SAT 96
[2023-08-16 04:00] VITALS: BP 130/73; TEMP 97.5; O2SAT 99
[2023-08-16] MEDS: OXAZEPAM 15MG CAP PO SCH (05:28)
[2023-08-16 06:41] LABS: HEMATOCRIT 41.4 % (42.0-52.0); MEAN CORPUSCULAR HEMOGLOBIN 30.9 pg (27.0-33.0); MEAN CORPUSCULAR HGB CONC 33.8 g/dl (32.0-36.5); MEAN CORPUSCULAR VOLUME 91.4 fl (80.0-96.0); PLATELET COUNT, AUTOMATED 154 10^3/uL (150-450); RED BLOOD COUNT 4.53 10^6/uL (4.30-6.10); WHITE BLOOD COUNT 8.5 10^3/uL (4.0-10.0)
[2023-08-16 07:06] LABS: ALBUMIN 3.3 G/DL (3.2-5.2); ALKALINE PHOSPHATASE 92 U/L (46-116); ALT/SGPT 55 U/L (7.0-40); AST/SGOT 60 U/L (<34); BILIRUBIN,TOTAL 1.9 MG/DL (0.3-1.2); BLOOD UREA NITROGEN 11 MG/DL (9-23); CALCIUM LEVEL 8.5 MG/DL (8.5-10.1); CARBON DIOXIDE LEVEL 29 MMOL/L (20-31); CHLORIDE LEVEL 105 MMOL/L (98-107); CREATININE FOR GFR 0.55 MG/DL (0.70-1.30); GLOMERULAR FILTRATION RATE > 60.0 (>60); GLUCOSE, FASTING 143 MG/DL (60-100); MAGNESIUM LEVEL 1.7 MG/DL (1.8-2.4); POTASSIUM SERUM 3.2 MMOL/L (3.5-5.1); SODIUM LEVEL 139 MMOL/L (136-145); TOTAL PROTEIN 6.4 G/DL (5.7-8.2)
[2023-08-16 07:46] VITALS: BP 112/72; TEMP 97.1; O2SAT 92
[2023-08-16] MEDS ORDERED: LACTULOSE 20GM/30ML SYRUP UDC PO SCH (09:00)
[2023-08-16] MEDS ORDERED: hydrOXYzine 50 MG TAB PO SCH (09:00)
[2023-08-16] MEDS ORDERED: THIAMINE 100 MG TAB PO SCH (09:00)
[2023-08-16] MEDS ORDERED: POTASSIUM CHLORIDE 10MEQ SR TABLET PO ONE (09:00)
[2023-08-16] MEDS ORDERED: FOLIC ACID 1MG TAB PO SCH (09:00)
[2023-08-16] MEDS ORDERED: MULTIVITAMINS/MINERALS THERAP 1 TAB PO SCH (09:00)
[2023-08-16] MEDS: MAG SULF 1GM/100ML (MAG RUN) 1 GM in IV 1 EA IV SCH ×2 (09:16→10:33)
[2023-08-16] MEDS: ACAMPROSATE CALCIUM 333MG TABLET (CAMPRAL) PO SCH (09:16)
[2023-08-16] MEDS ORDERED: OXAZ10CA3 PO (10:28)
[2023-08-16] MEDS ORDERED: OXAZEPAM 10MG CAP PO SCH (14:00)
[2023-08-16] MEDS ORDERED: ZOLO100T PO (15:13)
== END 2023-08-16 11:18 | disposition home or self-care (01) | DRG 775 ==
LOC: M ED 17:04 → M ED INP 20:03 → M PCU 21:47
PROVIDERS: ADMIT Family Medicine; ATTEND Internal Medicine Nephrology
DX: F10.139 Alcohol abuse with withdrawal, unspecified (principal); I10 Essential (primary) hypertension; K70.30 Alcoholic cirrhosis of liver without ascites; K70.10 Alcoholic hepatitis without ascites; K76.0 Fatty (change of) liver, not elsewhere classified; F32.A Depression, unspecified; E83.42 Hypomagnesemia; G93.0 Cerebral cysts; K64.8 Other hemorrhoids; E78.5 Hyperlipidemia, unspecified; R74.01 Elevation of levels of liver transaminase levels; F42.9 Obsessive-compulsive disorder, unspecified; Z88.6 Allergy status to analgesic agent; Z79.899 Other long term (current) drug therapy; Z88.0 Allergy status to penicillin; Z88.5 Allergy status to narcotic agent

== ENCOUNTER 2023-11-29 13:52 | Emergency (ER) | payer MEDICAID, OTHER ==
[~2023-11-29] VITALS: Ht 170.2 cm; Wt 69.7 kg
[~2023-11-29 13:52] MED LIST changes: -CHLO25CA PO; +CHLO25CA10 PO; -FOLIC ACID 1MG TAB PO SCH; +HYDR50CA2 PO; -MULTIVITAMINS/MINERALS THERAP 1 TAB PO SCH; +OXAZ10CA3 PO; -THIAMINE 100 MG TAB PO SCH; +ZOLO100T PO
[2023-11-29 13:53] VITALS: BP 166/82; O2SAT 97
[2023-11-29 16:42] VITALS: TEMP 98.9
== END 2023-11-29 16:43 | disposition home or self-care (01) ==
LOC: M ED 14:41
DX: F32.A Depression, unspecified (principal); F10.10 Alcohol abuse, uncomplicated; Z88.1 Allergy status to other antibiotic agents; Z88.8 Allergy status to other drugs, medicaments and biological substances; Z79.810 Long term (current) use of selective estrogen receptor modulators (SERMs); Z79.899 Other long term (current) drug therapy

== ENCOUNTER 2023-12-03 11:30 | Emergency (ER) | payer OTHER ==
[~2023-12-03] VITALS: Ht 170.2 cm; Wt 69.2 kg
[2023-12-03 11:31] VITALS: TEMP 98.1
[2023-12-03] MEDS: NS 1,000 ML IV ONE ×3 (12:19→14:59)
[2023-12-03] MEDS: ONDANSETRON 4MG 2ML VIAL IV ONE (12:20)
[2023-12-03] MEDS: PANTOPRAZOLE 40MG VIAL IV ONE (12:20)
[2023-12-03] MEDS: KETOROLAC 30 MG/ML 1ML VIAL IV ONE ×2 (12:20→14:59)
[2023-12-03 12:25] LABS: BASO # 0.1 10^3/uL (0.0-0.2); BASO % 0.9 % (0.0-1.0); HEMATOCRIT 42.7 % (42.0-52.0); HEMOGLOBIN 15.1 g/dl (13.5-17.5); LYMPH % 13.2 % (24.0-44.0); MEAN CORPUSCULAR HEMOGLOBIN 32.1 pg (27.0-33.0); MEAN CORPUSCULAR HGB CONC 35.4 g/dl (32.0-36.5); MEAN CORPUSCULAR VOLUME 90.9 fl (80.0-96.0); MONO # 0.7 10^3/uL (0.0-0.8); MONO % 8.9 % (2.0-8.0); NEUTROPHILS # 5.8 10^3/uL (1.5-8.5); NEUTROPHILS % 76.6 % (36.0-66.0); PLATELET COUNT, AUTOMATED 165 10^3/uL (150-450); WHITE BLOOD COUNT 7.6 10^3/uL (4.0-10.0)
[2023-12-03 12:39] LABS: INR 1.15; PROTHROMBIN TIME 14.3 SECONDS (12.5-14.5)
[2023-12-03 12:48] LABS: LIPASE 55 U/L (12-53)
[2023-12-03 12:50] LABS: ALBUMIN 4.1 G/DL (3.2-5.2); ALKALINE PHOSPHATASE 116 U/L (46-116); ALT/SGPT 76 U/L (7.0-40); AST/SGOT 77 U/L (<34); BILIRUBIN,DIRECT 0.4 MG/DL (<0.4); BLOOD UREA NITROGEN 7 MG/DL (9-23); CALCIUM LEVEL 9.5 MG/DL (8.5-10.1); CARBON DIOXIDE LEVEL 30 MMOL/L (20-31); CHLORIDE LEVEL 101 MMOL/L (98-107); CREATININE FOR GFR 0.62 MG/DL (0.70-1.30); GLOMERULAR FILTRATION RATE > 60.0 (>60); GLUCOSE, FASTING 109 MG/DL (60-100); POTASSIUM SERUM 3.6 MMOL/L (3.5-5.1); SODIUM LEVEL 138 MMOL/L (136-145); TOTAL PROTEIN 7.5 G/DL (5.7-8.2)
[2023-12-03] MEDS ORDERED: ISOVUE-370 76% 100ML VIAL As Ordered ONE (13:04)
[2023-12-03] MEDS: SUCRALFATE SUSP 1GM/10ML UD PO ONE (14:58)
[2023-12-03 15:00] VITALS: BP 156/72; O2SAT 98
[2023-12-03] MEDS ORDERED: PROT1TAB2 PO (16:28)
[2023-12-03] MEDS ORDERED: SUCR1SS PO (16:28)
[2023-12-03] MEDS ORDERED: ONDA4TAB6 PO (16:29)
== END 2023-12-03 16:41 | disposition home or self-care (01) ==
LOC: M ED 11:30
DX: K29.70 Gastritis, unspecified, without bleeding (principal); K85.90 Acute pancreatitis without necrosis or infection, unspecified; F32.A Depression, unspecified; F10.10 Alcohol abuse, uncomplicated; Z88.1 Allergy status to other antibiotic agents; Z88.8 Allergy status to other drugs, medicaments and biological substances; Z79.899 Other long term (current) drug therapy
CPT/HCPCS: 74177; 80048; 80076; 81001; 83690; 85025; 85610; 93005; 93041; 96361; 96374; 96376; 99283; 99284; C9113; J1885; J2405; Q9967

== ENCOUNTER → 2023-12-30 | Outpatient (CLI) | payer OTHER ==
[~2023-12-30] MED LIST changes: +ONDA4TAB6 PO; +PROT1TAB2 PO; +SUCR1SS PO
[2023-12-30 10:22] LABS: INR 1.15; PROTHROMBIN TIME 14.4 SECONDS (12.5-14.5)
[2023-12-30 10:34] LABS: ALBUMIN 3.8 G/DL (3.2-5.2); ALKALINE PHOSPHATASE 92 U/L (46-116); ALT/SGPT 73 U/L (7.0-40); AST/SGOT 60 U/L (<34); BILIRUBIN,DIRECT 0.3 MG/DL (<0.4); BILIRUBIN,TOTAL 1.1 MG/DL (0.3-1.2); BLOOD UREA NITROGEN 8 MG/DL (9-23); CREATININE FOR GFR 0.67 MG/DL (0.70-1.30); GLOMERULAR FILTRATION RATE > 60.0 (>60)
== END ==
LOC: M LAB 08:54
PROVIDERS: ATTEND Internal Medicine Gastroenterology
DX: K70.30 Alcoholic cirrhosis of liver without ascites (principal); R63.4 Abnormal weight loss

== ENCOUNTER → 2024-01-07 | Outpatient (CLI) | payer OTHER ==
[~2024-01-07] MED LIST changes: +PROHANCE 279.3MG/ML 15ML VIAL ONE
== END ==
LOC: M PLAIMG 07:29
PROVIDERS: ATTEND Internal Medicine Gastroenterology
DX: D37.6 Neoplasm of uncertain behavior of liver, gallbladder and bile ducts (principal); K70.30 Alcoholic cirrhosis of liver without ascites

== ENCOUNTER 2024-03-17 08:45 | Day surgery (SDC) | payer OTHER ==
[~2024-03-17] VITALS: Ht 170.2 cm; Wt 71.1 kg
[~2024-03-17 08:45] MED LIST changes: +ARIP1TAB10 PO; +MAGN400C PO; +MULTTAB61 PO; +ONDA-282 PO; -ONDA4TAB6 PO; +PANT40TA29 PO; -PROHANCE 279.3MG/ML 15ML VIAL ONE
[2024-03-17] MEDS: NS 1,000 ML IV ONE (09:20)
[2024-03-17] MEDS ORDERED: propofoL 200 MG/20 ML VIAL As Ordered ONE (11:06)
[2024-03-17] MEDS ORDERED: fentaNYL 100 MCG/2 ML INJECTION As Ordered ONE (11:06)
[2024-03-17] MEDS ORDERED: LIDOCAINE 2% 100MG/5ML SDV (FOR ANES.) As Ordered ONE (11:06)
[2024-03-17 11:31] VITALS: TEMP 97.3
[2024-03-17 11:47] VITALS: BP 112/64; O2SAT 98
== END 2024-03-17 11:52 | disposition home or self-care (01) ==
LOC: M OPP 08:45
PROVIDERS: ATTEND Internal Medicine Gastroenterology
DX: Z13.810 Encounter for screening for upper gastrointestinal disorder (principal); Z79.891 Long term (current) use of opiate analgesic; Z79.899 Other long term (current) drug therapy; Z88.1 Allergy status to other antibiotic agents; Z88.5 Allergy status to narcotic agent; Z88.6 Allergy status to analgesic agent
CPT/HCPCS: 43235; J3010